=== PATIENT | male | born 1970 | race Caucasian/White ===

== ENCOUNTER 2017-07-30 01:42 | Emergency (ER) | payer OTHER ==
[~2017-07-30] VITALS: Ht 182.9 cm; Wt 72.0 kg
[~2017-07-30 01:42] MED LIST: CLON.1 PO; LEVE500 PO; OXYC15TA PO; TRAZ50TA4 PO; XANA1TAB6 PO
[2017-07-30 01:52] VITALS: BP 143/90; PULSE 104; RESP 16; TEMP 97.8; O2SAT 100
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
[2017-07-30 02:17] VITALS: BP 132/87; PULSE 98; RESP 18; O2SAT 94
--- NOTE | 2017-07-30 02:44 | RADRPT ---
EXAM DATE/TIME: 07/30/2017 02:27 [facility] COMPARISON: CT BRAIN W/O CONTRAST, September 04, 2014, 10:50. INDICATIONS : Cephalgia. RADIATION DOSE: 33.75 CTDIvol (mGy) MEDICAL HISTORY : Seizures. Cardiovascular disease SURGICAL HISTORY : None. ENCOUNTER: Initial ACUITY: 1 day PAIN SCALE: 7/10 LOCATION: cranial TECHNIQUE: Multiple contiguous axial images were obtained of the head. Using automated exposure control and adj ustment of the mA and/or kV according to patient size, radiation dose was kept as low as reasonably a chievable to obtain optimal diagnostic quality images. DICOM format image data is available electro nically for review and comparison. FINDINGS: CEREBRUM: The ventricles are normal. There is a 14 mm partially calcified pineal cyst. No evidence of midline shift, mass lesion, hemorrhage or acute infarction. No extra-axial fluid collections are seen. POSTERIOR FOSSA: The cerebellum and brainstem are intact. The 4th ventricle is midline. The cerebellopontine angle i s unremarkable. EXTRACRANIAL: Visualized sinuses are clear. SKULL: The calvaria is intact. No evidence of skull fracture. CONCLUSION: 1. No acute intracranial abnormality is identified. 2. 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 Yrn De La Cruz MD on July 30, 2017 at 2:40 Board Certified Radiologist. This report was verified electronically.
[2017-07-30] MEDS ORDERED: LEVE500 PO (04:47)
--- NOTE | 2017-07-30 08:33 | PD ---
Physical Exam Date Seen by Provider: Jul 30, 2017 Time Seen by Provider: 08:31 Narrative 0830 hrs. Patient is up ambulatory, and at full mental capacity. He is medically stable on discharge. Data Data Last Documented VS Vital Signs Date Time Temp Pulse Resp B/P (MAP) Pulse Ox O2 Delivery O2 Flow Rate FiO2 07/30/17 02:17 98 18 132/87 (102) 94 07/30/17 01:[address] Brain W/O Iv Contrast(Rout) (07/30/17 ) Diet Regular Basic (07/30/17 Breakfast) MDM Medical Record Reviewed: Yes Supervised Visit with ANN: Yes Narrative Course 0830 hrs. Patient is up ambulatory, and at full mental capacity. He is medically stable on discharge. Diagnosis Primary Impression: Alcohol use Referrals: [facility] (Out patient) Patient Instructions: Abuse of Alcohol (ED), General Instructions Med/Other Pt SpecificInfo: No Meds Exist/No RX given Disposition: 01 DISCHARGE HOME Condition: Stable Wilmar Christopher Jul 30, 2017 08:33
== END 2017-07-30 08:44 | disposition home or self-care (01) ==
LOC: NEPD 01:42
DX: F10.129 Alcohol abuse with intoxication, unspecified (principal); R51 Headache; F17.200 Nicotine dependence, unspecified, uncomplicated; F41.9 Anxiety disorder, unspecified; F32.9 Major depressive disorder, single episode, unspecified; K57.92 Diverticulitis of intestine, part unspecified, without perforation or abscess without bleeding; R56.9 Unspecified convulsions; Z72.89 Other problems related to lifestyle; Z79.899 Other long term (current) drug therapy
CPT/HCPCS: 70450; 99284

== ENCOUNTER 2018-10-26 03:30 | Inpatient (IN) ==
[2018-10-26 03:34] VITALS: TEMP 97.5
[2018-10-26 03:57] VITALS: BP 135/82; PULSE 125; RESP 26; O2SAT 97
--- NOTE | 2018-10-26 04:25 | ED ---
HPI General Chief complaint: Respiratory Symptoms Stated complaint: sob Time Seen by Provider: 10/26/18 04:09 Source: patient and family () Mode of arrival: ambulatory Limitations: no limitations History of Present Illness HPI narrative: Old male came to the emergency room with his with history of neck pain, back pain for past 3-4 days. Today his whole body has been hurting. He was tachycardic upon arrival. Patient was also hypoxic and says that he has been coughing up yellowish to grayish colored sputum. Patient is an IV drug abuser. He is also on oxycodone for chronic pain. Patient says that he went to the [facility] 2 days back with these complaints and was given an IM pain medication shot and discharged home. His heart rate was in 120s when he arrived. He has been diaphoretic and getting chills at home. His who is here with him has history of IV drug abuse as well along with infective endocarditis and cellulitis from MRSA. Pain is worse upon movement. Related Data Home Medications Medication Instructions Recorded Confirmed oxycodone 30 mg PO Q4-6H PRN 10/26/18 10/26/18 Allergies Allergy/AdvReac Type Severity Reaction Status Date / Time bee venom protein (honey bee) Allergy Severe Anaphylaxis Unverified 10/26/18 03: 49 cyclobenzaprine Allergy Severe MUSCLE Unverified 10/26/18 03:49 SPASMS Review of Systems ROS: all other systems reviewed are negative [facility] Medical History Medical History Cervical vertebral fusion (Acute) HTN (hypertension) (Acute) Heart attack (Acute) Hyperglycemia (Acute) Seizures (Acute) Surgical History Surgical History History of hernia repair (Acute) Social History Social History Smoking Status: Current every day smoker Tobacco Type: Cigarettes How Often Do You Have a Drink Containing Alcohol: Monthly or less Recent Travel in [facility] within the Last 8 Weeks: No Recent Out of Country Travel within the Last 8 Weeks: No Immunization History Tetanus Immunization: <5 Years Exam Narrative Exam Narrative: GENERAL: Awake, alert, anxious, moderate distress SKIN: Warm and diaphoretic. Multiple track rodriguez HEAD: Atraumatic. Normocephalic. EYES: Pupils equal and round. No scleral icterus. No injection or drainage. ENT: No nasal bleeding or discharge. Mucous membranes pink and moist. NECK: Trachea midline. No JVD. CARDIOVASCULAR: Regular rate and rhythm. Tachycardia. No murmur appreciated. RESPIRATORY: No accessory muscle use. Fine bibasilar crackles GASTROINTESTINAL: Abdomen soft, non-tender, nondistended. Hepatic and splenic margins not palpable. MUSCULOSKELETAL: No obvious deformities. No clubbing. No cyanosis. No edema. NEUROLOGICAL: Awake and alert. No obvious cranial nerve deficits. Motor grossly within normal limits. Normal speech. PSYCHIATRIC: Appropriate mood and affect; insight and judgment normal. Course Initial Documented Vital Signs Temperature 97.5 F L 10/26/18 03:32 Pulse Rate 127 H 10/26/18 03:32 Respiratory Rate 28 H 10/26/18 03:32 Blood Pressure 135/85 10/26/18 03:32 Pulse Oximetry 94 L 10/26/18 03:32 Last Documented Vital Signs Temperature 97.5 F L 10/26/18 03:32 Pulse Rate 125 H 10/26/18 03:55 Respiratory Rate 26 H 10/26/18 03:55 Blood Pressure 135/82 10/26/18 03:55 Pulse Oximetry 97 10/26/18 03:55 Critical Care Time Critical Care Time: Yes Total Critical Care Time: 30 Attestation: Aggregate critical care time was 30 minutes. Time to perform other separately billable procedures was not included in the critical care time. My time did not include minutes spent treating any other patients simultaneously or on activities that did not directly contribute to the patient's treatment. The services I provided to this patient were to treat and/or prevent clinically significant deterioration that could result in: Sepsis, sepsis protocol I provided critical care services requiring my management, as noted below: Chart data review, documentation time, medication orders and management, vital sign assessments/reviewing monitor data, ordering and reviewing lab tests, ordering and interpreting/reviewing x-rays and diagnostic studies, care of the patient and discussion of the patient with the admitting physicians. Medical Decision Making MDM Narrative Medical decision making narrative: 5:49 AM patient was given IV fluid bolus, IV Zosyn and vancomycin. White blood cell count is significantly elevated. I have expressed to him my concern regarding blood-borne infection from IV drug abuse. Chest x-ray and chest CT is suggestive of bronchopneumonia and mild bilateral pleural effusion. I have ordered an MRI of his cervical, thoracic and lumbar spine which is pending. Patient will require admission. Awaiting for the hospitalist to call back. Medical Screen Exam Complete: Yes Emergency Medical Condition: Yes Lab Data Result diagrams: 10/26/18 04:50 10/26/18 04:50 Lab Results 10/26/18 10/26/18 10/26/18 Range/Units 04:50 04:50 04:50 WBC 21.6 H (4.0-11.0) th/mm3 RBC 4.64 (4.50-5.90) mil/mm3 Hgb 13.3 (13.0-17.0) gm/dL Hct 38.3 L (39.0-51.0) % MCV 82.6 (80.0-100.0) fL MCH 28.6 (27.0-34.0) pg MCHC 34.7 (32.0-36.0) % RDW 16.2 (11.6-17.2) % Plt Count 161 (150-450) th/mm3 MPV 9.1 (7.0-11.0) fL Neut % (Auto) 87.1 H (16.0-70.0) % Lymph % (Auto) 3.9 L (9.0-44.0) % [place] % (Auto) 7.8 (0.0-8.0) % Eos % (Auto) 1.0 (0.0-4.0) % Baso % (Auto) 0.2 (0.0-2.0) % Neut # (Auto) 18.8 H (1.8-7.7) th/mm3 Lymph # (Auto) 0.8 L (1.0-4.8) th/mm3 [place] # (Auto) 1.7 H (0.0-0.9) th/mm3 Eos # (Auto) 0.2 (0.0-0.4) th/mm3 Baso # (Auto) 0.0 (0.0-0.2) th/mm3 WBC Differential . Differential Comment Auto diff final Sodium 136 (136-145) meq/L Potassium 3.3 L (3.5-5.1) meq/L Chloride 101 (98-107) meq/L Carbon Dioxide 24.3 (21.0-32.0) meq/L Anion Gap 11 (5-15) meq/L BUN 15 (7-18) mg/dL Creatinine 0.91 (0.60-1.30) mg/dL Estimated GFR 89 (>89) mL/min Random Glucose 93 (74-106) mg/dL Lactic Acid 1.8 (0.4-2.0) mmol/L Calcium 8.7 (8.5-10.1) mg/dL Magnesium 1.9 (1.5-2.5) mg/dL Total Bilirubin 0.5 (0.2-1.0) mg/dL AST 52 H (15-37) U/L ALT 65 (12-78) U/L Alkaline Phosphatase 165 H (45-117) U/L Total Protein 7.6 (6.4-8.2) g/dL Albumin 2.5 L (3.4-5.0) g/dL Imaging Data Radiologist's impression: Chest X-Ray 10/26/18 04:28 CONCLUSION: Mild basilar opacity with questionable trace pleural fluid. Chest CT 10/26/18 05:10 CONCLUSION: 1. Patchy airspace disease in the lungs, especially at the lung bases most characteristic of bronchopneumonia. There is also underlying mild to moderate emphysema. 2. Borderline to mildly enlarged mediastinal lymph nodes. 3. Extensive pancreatic calcifications characteristic of chronic pancreatitis. ECG Data Attestation: I personally reviewed and interpreted this ECG as follows: Interpretation: Twelve-lead EKG was reviewed by me. Normal sinus rhythm, normal axis, tachycardia, nonspecific ST-T wave changes. Heart rate of 125 bpm. Discharge Plan Discharge Disposition Patient Disposition: 30 Still Patient Physicians Team ED Provider: Tressa Carlton Primary Care Provider: Primary Care Ellie Beck Rxs /Orders / Referrals /Forms Prescriptions: No Action oxycodone 30 mg Tablet 30 mg PO Q4-6H PRN (Reason: Acute Pain) RF: 0 Discharge Interventions Interventions: Vital Signs Last Done: 10/26/18 03:55 Status ED Status: With Doctor
[2018-10-26] MEDS ORDERED: Sod Chloride 0.9% Inj 1,000 ML IV.SIG SCH (04:45)
--- NOTE | 2018-10-26 04:49 | XR ---
EXAM DATE: 10/26/2018 4:45 AM EST AGE/SEX: 48 years / Male INDICATIONS: Bilateral lung and entire body pain. CLINICAL DATA: This is the patient's initial encounter. Patient reports that signs and symptoms have been present for 1 day and indicates a pain score of 8/10. MEDICAL/SURGICAL HISTORY: Hypertension. Fusion, cervical. COMPARISON: No prior exams available for comparison. FINDINGS: There is mild basilar airspace disease. Probable trace pleural fluid. No pneumothorax. Heart size wit hin normal limits. CONCLUSION: Mild basilar opacity with questionable trace pleural fluid. Electronically signed by: Shimon Orr MD 10/26/2018 4:47 AM EST
[2018-10-26 05:07] LABS: Baso % (Auto) 0.2 % (0.0-2.0); Eos # (Auto) 0.2 th/mm3 (0.0-0.4); Hematocrit 38.3 % (39.0-51.0); Hemoglobin 13.3 gm/dL (13.0-17.0); Lymph # (Auto) 0.8 th/mm3 (1.0-4.8); Lymph % (Auto) 3.9 % (9.0-44.0); Mean Corpuscular HGB Conc 34.7 % (32.0-36.0); Mean Corpuscular Hemoglobin 28.6 pg (27.0-34.0); Mean Corpuscular Volume 82.6 fL (80.0-100.0); Mean Platelet Volume 9.1 fL (7.0-11.0); Mono # (Auto) 1.7 th/mm3 (0.0-0.9); Mono % (Auto) 7.8 % (0.0-8.0); Neut # (Auto) 18.8 th/mm3 (1.8-7.7); Neut % (Auto) 87.1 % (16.0-70.0); Platelet Count 161 th/mm3 (150-450); Red Blood Count 4.64 mil/mm3 (4.50-5.90); Red Cell Distribution Width 16.2 % (11.6-17.2); White Blood Count 21.6 th/mm3 (4.0-11.0)
[2018-10-26] MEDS ORDERED: Vancomycin Inj 1,000 MG in Sodium Chlor 0.9% Inj 250 ML IV.SIG ONE (05:12)
[2018-10-26] MEDS ORDERED: Piperacil/Tazo 4.5 GM Premix 4.5 GM/100 ML BAG IV.SIG ONE (05:12)
[2018-10-26 05:33] LABS: Albumin 2.5 g/dL (3.4-5.0); Anion Gap 11 meq/L (5-15); Aspartate Aminotransferase 52 U/L (15-37); Blood Urea Nitrogen 15 mg/dL (7-18); Calcium 8.7 mg/dL (8.5-10.1); Carbon Dioxide 24.3 meq/L (21.0-32.0); Chloride 101 meq/L (98-107); Glomerular Filtration Rate 89 mL/min (>89); Glucose,Random 93 mg/dL (74-106); Magnesium 1.9 mg/dL (1.5-2.5); Potassium 3.3 meq/L (3.5-5.1); Sodium 136 meq/L (136-145)
[2018-10-26 05:34] LABS: Alanine Aminotransferase 65 U/L (12-78)
[2018-10-26 05:36] LABS: Alkaline Phosphatase 165 U/L (45-117); Total Protein 7.6 g/dL (6.4-8.2)
--- NOTE | 2018-10-26 05:43 | CT ---
EXAM DATE: 10/26/2018 5:31 AM EST AGE/SEX: 48 years / Male INDICATIONS: Cough. CLINICAL DATA: This is the patient's initial encounter. Patient reports that signs and symptoms have been present for 2 days and indicates a pain score of 7/10. MEDICAL/SURGICAL HISTORY: Myocardial infarction. Seizures. Hypertension. . Cervical fusion RADIATION DOSE: 8.73 CTDI (mGy) COMPARISON: No prior exams available for comparison. TECHNIQUE: Multiple contiguous axial images were obtained through the chest without contrast. Image s were obtained in suspended respiration using multiple row detector helical technique. Using automa azam exposure control and adjustment of the mA and/or kV according to patient size, radiation dose was kept as low as reasonably achievable to obtain optimal diagnostic quality images. DICOM format imag e data is available electronically for review and comparison. FINDINGS: There is airspace disease at both lung bases with some air bronchograms most characteristic of bronch opneumonia. There is mild to moderate emphysema. There is also some apical airspace disease and groun dglass opacity. No significant pleural effusion. No pericardial effusion. No pneumothorax. Borderline enlarged medias tinal lymph nodes. No acute findings in the upper abdomen. Chronic pancreatitis. CONCLUSION: 1. Patchy airspace disease in the lungs, especially at the lung bases most characteristic of broncho pneumonia. There is also underlying mild to moderate emphysema. 2. Borderline to mildly enlarged mediastinal lymph nodes. 3. Extensive pancreatic calcifications characteristic of chronic pancreatitis. Electronically signed by: Shimon Orr MD 10/26/2018 5:42 AM EST
[2018-10-26] MEDS ORDERED: Vancomycin Consult Pharmacy OTHER PRN (06:03)
[2018-10-26] MEDS ORDERED: Bisacodyl 10 MG Supp RECTAL PRN (06:06)
[2018-10-26] MEDS ORDERED: Acetaminophen 325 MG Tablet PO PRN (06:06)
[2018-10-26] MEDS ORDERED: Sod Chloride 0.9% Inj 1,000 ML IV.CONT SCH (06:15)
[2018-10-26 06:21] LABS: Bilirubin,Urine Negative (Negative); Clarity,Urine Hazy (Clear); Color,Urine Yellow (Yellw/Straw); Glucose,Urine (UA) Negative (Negative); Hyaline Casts,Urine 4 /lpf (0-3); Leukocyte Esterase,Urine Negative (Negative); Mucus,Urine Few /lpf (Occasional); Nitrite,Urine Negative (Negative); Specific Gravity,Urine 1.016 (1.002-1.035)
[2018-10-26] MEDS ORDERED: Senna/Docusate Sodium 8.6/50 MG Tablet PO SCH (09:00)
[2018-10-26 11:14] LABS: Amphetamine Screen,Urine Pos (Neg); Barbiturate Screen,Urine Neg (Neg); Cannabinoid Screen,Urine Pos (Neg); Cocaine Screen,Urine Pos (Neg); Opiate Screen,Urine Pos (Neg)
--- NOTE | 2018-10-27 06:42 | ECG ---
Date Performed: 10/26/2018 Time Performed: 03:49:48 PTAGE: 48 years EKG: SINUS TACHYCARDIA WITH SHORT GA INTERVAL LEFT VENTRICULAR HYPERTROPHY AND ST-T CHANGE ABNOR MAL ECG NO PREVIOUS TRACING DOCTOR: Rene Valero Interpretating Date/Time 10/27/2018 06:40:38
== END 2018-10-26 07:00 | disposition left against medical advice (07) ==
LOC: NEPC 03:30 → NEDA 06:11
PROVIDERS: ADMIT Hospitalist; ATTEND Hospitalist
CPT/HCPCS: 71010; 71045; 71250; 80053; 80307; 81001; 83605; 83735; 85025; 86403; 87040; 87186; 87205; 93005; J2060; J2543; J7030

== ENCOUNTER 2018-10-28 14:13 | Inpatient (IN) ==
[2018-10-28] MEDS ORDERED: Vancomycin Inj 1,000 MG in Sodium Chlor 0.9% Inj 250 ML IV.SIG ONE (16:09)
[2018-10-28] MEDS ORDERED: Piperacil/Tazo 3.375 GM Premix 50 ML IV.SIG ONE (16:09)
[2018-10-28] MEDS ORDERED: Sod Chloride 0.9% Inj 1,000 ML IV.SIG SCH (16:15)
--- NOTE | 2018-10-28 16:28 | XR ---
EXAM DATE: 10/28/2018 4:23 PM EST AGE/SEX: 48 years / Male INDICATIONS: Fever. Patient states he has an infection from missed veins during IVDU. CLINICAL DATA: This is the patient's initial encounter. Patient reports that signs and symptoms have been present for 1 day and indicates a pain score of 5/10. MEDICAL/SURGICAL HISTORY: . Myocardial infarction. Seizures. Hypertension. Smoker. IVDU. . Ce rvical fusion. COMPARISON: C, CHEST 1V SINGLE AP, 10/26/2018. . FINDINGS: Slight interval worsening in aeration with increase in confluence of bibasilar infiltrates. Likely sm all effusions. Cardiac contours are grossly unchanged CONCLUSION: Slight worsening in aeration. Electronically signed by: Yrn Colby MD 10/28/2018 4:26 PM EST
--- NOTE | 2018-10-28 16:45 | ED ---
HPI General Chief Complaint: Fever Stated Complaint: Poss Infection Time Seen by Provider: 10/28/18 15:59 Source: patient and family Mode of arrival: ambulatory Limitations: no limitations History of Present Illness HPI Narrative: 48-year-old male complains of fever, body aches, productive cough and shortness of breath. Patient states that the symptoms started about a week ago. Patient states that with copy persistent and productive cough. Patient complained of body ache. Patient has history IV drug abuse. Patient also has history of chronic pain and on oxycodone. Patient states that the last time he had IV drug was 4 days ago. Patient was seen at [facility] about a week ago and given an injection of medication and discharged home. Patient was seen in emergency room at [facility] 2 days ago and was diagnosed with pneumonia. Patient was given IV vancomycin and IV Zosyn. Patient was advised to be admitted. Patient left AMA. Chest x-ray at that time show bibasilar infiltrate. CT of the chest shows bibasilar airspace disease. Patient states that the symptoms are worse since he left the hospital. Patient complained of fever chills and sweating. Patient has history hypertension, CAD status post MA, hyperlipidemia and seizure. Patient status post neck surgery in the past. Patient has history of infective endocarditis and cellulitis and MRSA in the past. Patient also complained of bilateral hand swelling for the past 3 days. Patient states that he has moderate aching pain to both hands. Patient denies direct trauma to the area. Blood culture done 2 days ago positive for Staph aureus and Strep viridans. complaint: Reports fever Onset (ago): day(s) Temperature Source: oral Context: Reports recent antibiotic use Associated symptoms: Reports chills, myalgias, cough and shortness of breath Relieving factors: nothing Exacerbating factors: nothing Treatments prior to arrival fever: Reports none Related Data Home Medications Medication Instructions Recorded Confirmed oxycodone 30 mg PO Q4-6H PRN 10/26/18 10/28/18 ibuprofen 600 mg PO TID PRN 10/28/18 10/28/18 Allergies Allergy/AdvReac Type Severity Reaction Status Date / Time bee venom protein (honey bee) Allergy Severe Anaphylaxis Unverified 10/26/18 03: 49 cyclobenzaprine Allergy Severe MUSCLE Unverified 10/26/18 03:49 SPASMS Review of Systems ROS: all other systems reviewed are negative [facility] Medical History Medical History Cervical vertebral fusion (Acute) HTN (hypertension) (Acute) Heart attack (Acute) Hyperglycemia (Acute) Seizures (Acute) Surgical History Surgical History History of hernia repair (Acute) Social History Social History Substance History: Active Abuse Smoking Status: Current every day smoker Tobacco Type: Cigarettes How Often Do You Have a Drink Containing Alcohol: Never Recent Travel in [place] within the Last 8 Weeks: No Recent Out of Country Travel within the Last 8 Weeks: No Substance Abuse Detail Marijuana: Substance Use Status: Active Heroin: Substance Use Status: Active Immunization History Tetanus Immunization: <5 Years Tetanus Immunization Year if Known: 2016 Exam Narrative Exam Narrative: GENERAL: Well-nourished, well-developed patient. SKIN: Focused skin assessment warm/dry. HEAD: Normocephalic. EYES: No scleral icterus. No injection or drainage. NECK: Supple, trachea midline. No JVD or lymphadenopathy. CARDIOVASCULAR: Regular rate and rhythm without murmurs, gallops, or rubs. RESPIRATORY: Breath sounds equal bilaterally. No accessory muscle use. Patient has mild expiratory wheezes bilaterally. Few rhonchi at the bases. GASTROINTESTINAL: Abdomen soft, non-tender, nondistended. MUSCULOSKELETAL: Patient has +1-+2 pitting edema dorsal aspect of both hands with mild tenderness on palpation. No induration noted. No redness no heat. Full range of motion of the fingers. BACK: Nontender without obvious deformity. No CVA tenderness. Neurologic exam normal. Course Initial Documented Vital Signs Temperature 97.8 F 10/28/18 14:26 Pulse Rate 108 H 10/28/18 14:26 Respiratory Rate 20 10/28/18 14:26 Blood Pressure 139/81 10/28/18 14:26 Pulse Oximetry 94 L 10/28/18 14:26 Last Documented Vital Signs Temperature 99.8 F H 10/28/18 18:16 Pulse Rate 109 H 10/28/18 18:16 Respiratory Rate 20 10/28/18 18:16 Blood Pressure 156/87 H 10/28/18 18:33 Pulse Oximetry 94 L 10/28/18 18:16 Medical Decision Making MDM Narrative Medical decision making narrative: 48-year-old male with cough congestion fever chills body ache. History IV drug abuse. History of pneumonia, left AMA 2 days ago. Normal saline solution 1 L IV bolus. Vancomycin 1 g IV. Zosyn 3.375 g IV. Potassium chloride 40 mEq p.o. given. Medical Screen Exam Complete: Yes Emergency Medical Condition: Yes Lab Data Lab results reviewed: Yes I reviewed the patient's lab results. Result diagrams: 10/28/18 16:35 10/28/18 16:35 Lab Results 10/28/18 10/28/18 10/28/18 Range/Units 16:35 16:35 16:35 WBC 22.3 H (4.0-11.0) th/mm3 RBC 4.08 L (4.50-5.90) mil/mm3 Hgb 11.4 L (13.0-17.0) gm/dL Hct 33.4 L (39.0-51.0) % MCV 81.8 (80.0-100.0) fL MCH 28.0 (27.0-34.0) pg MCHC 34.2 (32.0-36.0) % RDW 16.3 (11.6-17.2) % Plt Count 137 L (150-450) th/mm3 MPV 8.4 (7.0-11.0) fL Neut % (Auto) 85.3 H (16.0-70.0) % Lymph % (Auto) 9.1 (9.0-44.0) % Falls % (Auto) 5.3 (0.0-8.0) % Eos % (Auto) 0.0 (0.0-4.0) % Baso % (Auto) 0.3 (0.0-2.0) % Neut # (Auto) 19.1 H (1.8-7.7) th/mm3 Lymph # (Auto) 2.0 (1.0-4.8) th/mm3 Falls # (Auto) 1.2 H (0.0-0.9) th/mm3 Eos # (Auto) 0.0 (0.0-0.4) th/mm3 Baso # (Auto) 0.1 (0.0-0.2) th/mm3 WBC Differential . Differential Comment Auto diff final PT 11.9 H (9.8-11.6) sec INR 1.2 Ratio APTT 34.7 H (23.4-31.7) sec Sodium 134 L (136-145) meq/L Potassium 3.1 L (3.5-5.1) meq/L Chloride 98 (98-107) meq/L Carbon Dioxide 28.5 (21.0-32.0) meq/L Anion Gap 8 (5-15) meq/L BUN 12 (7-18) mg/dL Creatinine 0.73 (0.60-1.30) mg/dL Estimated GFR Greater than 89 (>89) mL/min Random Glucose 118 H (74-106) mg/dL Lactic Acid (0.4-2.0) mmol/L Calcium 8.1 L (8.5-10.1) mg/dL Total Bilirubin 0.8 (0.2-1.0) mg/dL AST 24 (15-37) U/L ALT 35 (12-78) U/L Alkaline Phosphatase 126 H (45-117) U/L Total Creatine Kinase 23 L (39-308) U/L Troponin I Less than 0.02 L (0.02-0.05) ng/mL Total Protein 7.0 D (6.4-8.2) g/dL Albumin 1.8 L (3.4-5.0) g/dL Urine Color (Yellw/Straw) Urine Clarity (Clear) Urine pH (5.0-8.5) Ur Specific Flom (1.002-1.035) Urine Protein (Neg-Trace) mg/dL Urine Glucose (UA) (Negative) mg/dL Urine Ketones (Negative) mg/dL Urine Occult Blood (Negative) Urine Nitrate (Negative) Urine Bilirubin (Negative) Urine Urobilinogen (Less than 2) mg/dL Ur Leukocyte Esterase (Negative) Urine RBC (0-3) /hpf Urine WBC (0-5) /hpf Ur Squamous Epith Cells (0-5) /hpf Urine Mucus (Occasional) /lpf Micro UA Comment Ur Microscopic Review Urine Culture Comments 10/28/18 10/28/18 Range/Units 16:35 17:25 WBC (4.0-11.0) th/mm3 RBC (4.50-5.90) mil/mm3 Hgb (13.0-17.0) gm/dL Hct (39.0-51.0) % MCV (80.0-100.0) fL MCH (27.0-34.0) pg MCHC (32.0-36.0) % RDW (11.6-17.2) % Plt Count (150-450) th/mm3 MPV (7.0-11.0) fL Neut % (Auto) (16.0-70.0) % Lymph % (Auto) (9.0-44.0) % Falls % (Auto) (0.0-8.0) % Eos % (Auto) (0.0-4.0) % Baso % (Auto) (0.0-2.0) % Neut # (Auto) (1.8-7.7) th/mm3 Lymph # (Auto) (1.0-4.8) th/mm3 Falls # (Auto) (0.0-0.9) th/mm3 Eos # (Auto) (0.0-0.4) th/mm3 Baso # (Auto) (0.0-0.2) th/mm3 WBC Differential Differential Comment PT (9.8-11.6) sec INR Ratio APTT (23.4-31.7) sec Sodium (136-145) meq/L Potassium (3.5-5.1) meq/L Chloride (98-107) meq/L Carbon Dioxide (21.0-32.0) meq/L Anion Gap (5-15) meq/L BUN (7-18) mg/dL Creatinine (0.60-1.30) mg/dL Estimated GFR (>89) mL/min Random Glucose (74-106) mg/dL Lactic Acid 2.4 H (0.4-2.0) mmol/L Calcium (8.5-10.1) mg/dL Total Bilirubin (0.2-1.0) mg/dL AST (15-37) U/L ALT (12-78) U/L Alkaline Phosphatase (45-117) U/L Total Creatine Kinase (39-308) U/L Troponin I (0.02-0.05) ng/mL Total Protein (6.4-8.2) g/dL Albumin (3.4-5.0) g/dL Urine Color Yellow (Yellw/Straw) Urine Clarity Clear (Clear) Urine pH 6.0 (5.0-8.5) Ur Specific Flom 1.017 (1.002-1.035) Urine Protein 30 H (Neg-Trace) mg/dL Urine Glucose (UA) Negative (Negative) mg/dL Urine Ketones Negative (Negative) mg/dL Urine Occult Blood Negative (Negative) Urine Nitrate Negative (Negative) Urine Bilirubin Negative (Negative) Urine Urobilinogen Less than 2 (Less than 2) mg/dL Ur Leukocyte Esterase Negative (Negative) Urine RBC 1 (0-3) /hpf Urine WBC 5 (0-5) /hpf Ur Squamous Epith Cells <1 (0-5) /hpf Urine Mucus Few H (Occasional) /lpf Micro UA Comment Culture not ind Ur Microscopic Review Not Reportable Urine Culture Comments Culture not ind Imaging Data Radiologist's impression: Chest X-Ray 10/28/18 16:09 CONCLUSION: Slight worsening in aeration. Discharge Plan Discharge Disposition Patient Disposition: 30 Still Patient Discharge Details Diagnosis: Community acquired pneumonia, Sepsis, Acute hypokalemia, Cellulitis of hand Physicians Team ED Provider: Emiliano Bragg Primary Care Provider: Primary Care Ellie Beck Attending Provider: Nichole Menjivar Discharge Interventions Interventions: Vital Signs Last Done: 10/28/18 18:33 Status ED Status: Admitted Patient
[2018-10-28 17:00] LABS: Baso # (Auto) 0.1 th/mm3 (0.0-0.2); Baso % (Auto) 0.3 % (0.0-2.0); Hematocrit 33.4 % (39.0-51.0); Hemoglobin 11.4 gm/dL (13.0-17.0); Lymph % (Auto) 9.1 % (9.0-44.0); Mean Corpuscular HGB Conc 34.2 % (32.0-36.0); Mean Corpuscular Volume 81.8 fL (80.0-100.0); Mean Platelet Volume 8.4 fL (7.0-11.0); Mono # (Auto) 1.2 th/mm3 (0.0-0.9); Mono % (Auto) 5.3 % (0.0-8.0); Neut # (Auto) 19.1 th/mm3 (1.8-7.7); Neut % (Auto) 85.3 % (16.0-70.0); Platelet Count 137 th/mm3 (150-450); Red Blood Count 4.08 mil/mm3 (4.50-5.90); Red Cell Distribution Width 16.3 % (11.6-17.2); White Blood Count 22.3 th/mm3 (4.0-11.0)
[2018-10-28 17:08] LABS: Activated Partial Thrombo Time 34.7 sec (23.4-31.7); INR 1.2 Ratio; Prothrombin Time 11.9 sec (9.8-11.6)
[2018-10-28 17:19] LABS: Alanine Aminotransferase 35 U/L (12-78); Albumin 1.8 g/dL (3.4-5.0); Alkaline Phosphatase 126 U/L (45-117); Anion Gap 8 meq/L (5-15); Aspartate Aminotransferase 24 U/L (15-37); Blood Urea Nitrogen 12 mg/dL (7-18); Calcium 8.1 mg/dL (8.5-10.1); Carbon Dioxide 28.5 meq/L (21.0-32.0); Chloride 98 meq/L (98-107); Glomerular Filtration Rate Greater Than 89 mL/min (>89); Glucose,Random 118 mg/dL (74-106); Potassium 3.1 meq/L (3.5-5.1); Sodium 134 meq/L (136-145)
[2018-10-28 17:23] LABS: Creatine Kinase 23 U/L (39-308)
[2018-10-28 18:12] LABS: Bilirubin,Urine Negative (Negative); Color,Urine Yellow (Yellw/Straw); Glucose,Urine (UA) Negative (Negative); Leukocyte Esterase,Urine Negative (Negative); Mucus,Urine Few /lpf (Occasional); Nitrite,Urine Negative (Negative); Specific Gravity,Urine 1.017 (1.002-1.035); Squamous Epithelial Cell,Urine <1 /hpf (0-5)
[2018-10-28 18:16] LABS: Clarity,Urine Clear (Clear)
[2018-10-28] MEDS ORDERED: Acetaminophen 325 MG Tablet PO ONE (18:17)
[2018-10-28] MEDS ORDERED: Vancomycin Consult Pharmacy OTHER PRN (21:24)
[2018-10-28] MEDS ORDERED: Sod Chloride 0.9% Inj 1,000 ML IV.CONT SCH (21:30)
[2018-10-28] MEDS ORDERED: Bisacodyl 10 MG Supp RECTAL PRN (21:30)
--- NOTE | 2018-10-28 21:47 | P.HP ---
History of Present Illness Service: [facility] Primary Care Physician: No Primary Care Physician History of Present Illness: 48-year-old male with a past medical history significant for hypertension and IV drug abuse presents to the emergency department for the evaluation of increasing shortness of breath, productive cough, fever/chills and generalized weakness. The patient reports he lasted IV drugs approximately 1 week ago. He was hospitalized on Friday where he was diagnosed with pneumonia and left AMA. He also has a left thumb cellulitis that is worsening. No chest pain. No abdominal pain. No nausea/vomiting/diarrhea. No focal neurologic deficits. Inpatient Certification: I certify that the inpatient services were ordered in accordance with Medicare regulations governing the order. This includes certification that hospital inpatient services are reasonable and necessary and in the case of services not specified as inpatient-only under 42 CFR 419.22(n), that they are appropriately provided as inpatient services in accordance to with the 2-midnight benchmark under 43 CFR 412.3(e) Review of Systems All other systems reviewed negative except as stated in HPI [facility] - History History Provided By: Patient - Medical History Medical History: Medical History (Last Reviewed 10/28/18 @ 16:40 by Emiliano Bragg MD) Cervical vertebral fusion HTN (hypertension) Heart attack Hyperglycemia Seizures - Surgical History Surgical History: Surgical History (Last Reviewed 10/28/18 @ 21:37 by Nichole Menjivar MD) History of hernia repair - Family History Family History: Family History (Last Updated 10/28/18 @ 21:37 by Nichole Menjivar MD) Other Hypertension Pancreatic cancer - Social History I have reviewed the patient's Social History: Yes - Tobacco History Second Hand Smoke Exposure: Yes Tobacco Use In Past 30 Days: Yes Smoking Status: Current every day smoker Tobacco Type: Cigarettes - Alcohol History How Often Do You Have a Drink Containing Alcohol: Never - Substance Use History Substance History: Active Abuse - Substance Use Type Marijuana Status: Early Remission Route Used: Inhalation Frequency: socially, whenever around Last Used: 1 week ago Comment: pain management Heroin Status: Early Remission Route Used: Intravenously Frequency: monthly Last Used: 4days ago Comment: pain management - Travel History Recent Travel in the [place] Within the Last 8 Weeks: No Recent Travel Out of the Country Within the Last 8 Weeks: No - Immunization History Tetanus Immunization: <5 Years Tetanus Immunization Year if Known: 2015 Hx Influenza Vaccine This Season: Yes Medications and Allergies Active Medications: Active Medications Sodium Chloride (Ns Flush) 2 ml IV.FLUSH BID NBA Sodium Chloride (Ns Flush) 2 ml IV.FLUSH PRN PRN PRN Reason: FLUSH AFTER USING IV ACCESS Allergies Allergy/AdvReac Type Severity Reaction Status Date / Time bee venom protein (honey bee) Allergy Severe Anaphylaxis Unverified 10/26/18 03: 49 cyclobenzaprine Allergy Severe MUSCLE Unverified 10/26/18 03:49 SPASMS Home Medications Medication Instructions Recorded Confirmed Type oxycodone 30 mg PO Q4-6H PRN 10/26/18 10/28/18 History ibuprofen 600 mg PO TID PRN 10/28/18 10/28/18 History Exam Vital signs: Vital Signs 10/28/18 14:26 10/28/18 16:02 10/28/18 16:09 Temperature 97.8 F 98.5 F Pulse Rate 108 H 109 H 107 H Respiratory Rate 20 20 Blood Pressure 139/81 148/87 H Pulse Oximetry 94 L 96 95 10/28/18 18:16 10/28/18 18:33 10/28/18 20:00 Temperature 99.8 F H Pulse Rate 109 H 120 H Respiratory Rate 20 22 Blood Pressure 156/87 H 143/75 H Pulse Oximetry 94 L 94 L 10/28/18 20:50 Temperature 99.7 F H Pulse Rate 110 H Respiratory Rate 18 Blood Pressure 158/87 H Pulse Oximetry 93 L Intake & Output 10/28/18 10/28/18 10/29/18 06:59 18:59 06:59 Intake Total 1300 / 1300 Balance 1300 / 1300 Weight 68.039 kg 66.3 kg Intake: IV 1300 / 1300 Zosyn 3.375 GM Premix 50 ML @ 50 / 50 100 mls/hr IV.SIG ONCE ONE Rx#: [id number] NS Inj 1,000 ML @ 1000 mls/hr 1000 / 1000 IV.SIG BOLUS NBA Rx#:[id number] Vancomycin Inj 1,000 MG In NS 250 / 250 Inj 250 ML @ 250 mls/hr IV.SIG ONCE ONE Rx#:[id number] Other: Weight On Admission 68.353 kg Narrative: Gen.: No acute distress Head: Normocephalic. Atraumatic. EENT: Pupils equal round and reactive to light. Nose without drainage. Airway intact. Throat without injection. Cardiovascular: Regular rate and rhythm. No murmurs, rubs or gallops. Respiratory: Bilateral rhonchi. Abdomen: Soft, nontender, nondistended. No peritoneal signs. Musculoskeletal: No gross deformities. No edema. Skin: Erythematous and edematous left thumb that is warm to the touch. No fluctuance. Neuro: Sensory and motor grossly intact. Cranial nerves II through XII grossly intact. Results - Labs CBC & Chem 7: 10/28/18 16:35 10/28/18 16:35 Labs: Laboratory Results - last 24 hr 10/28/18 10/28/18 10/28/18 16:35 16:35 16:35 WBC 22.3 H RBC 4.08 L Hgb 11.4 L Hct 33.4 L MCV 81.8 MCH 28.0 MCHC 34.2 RDW 16.3 Plt Count 137 L MPV 8.4 Neut % (Auto) 85.3 H Lymph % (Auto) 9.1 Posey % (Auto) 5.3 Eos % (Auto) 0.0 Baso % (Auto) 0.3 Neut # (Auto) 19.1 H Lymph # (Auto) 2.0 Posey # (Auto) 1.2 H Eos # (Auto) 0.0 Baso # (Auto) 0.1 WBC Differential . Differential Comment Auto diff final PT 11.9 H INR 1.2 APTT 34.7 H Sodium 134 L Potassium 3.1 L Chloride 98 Carbon Dioxide 28.5 Anion Gap 8 BUN 12 Creatinine 0.73 Estimated GFR Greater than 89 Random Glucose 118 H Lactic Acid Calcium 8.1 L Total Bilirubin 0.8 AST 24 ALT 35 Alkaline Phosphatase 126 H Total Creatine Kinase 23 L Troponin I Less than 0.02 L Total Protein 7.0 D Albumin 1.8 L Urine Color Urine Clarity Urine pH Ur Specific Mitchell Urine Protein Urine Glucose (UA) Urine Ketones Urine Occult Blood Urine Nitrate Urine Bilirubin Urine Urobilinogen Ur Leukocyte Esterase Urine RBC Urine WBC Ur Squamous Epith Cells Urine Mucus Micro UA Comment Ur Microscopic Review Urine Culture Comments 10/28/18 10/28/18 16:35 17:25 WBC RBC Hgb Hct MCV MCH MCHC RDW Plt Count MPV Neut % (Auto) Lymph % (Auto) Posey % (Auto) Eos % (Auto) Baso % (Auto) Neut # (Auto) Lymph # (Auto) Posey # (Auto) Eos # (Auto) Baso # (Auto) WBC Differential Differential Comment PT INR APTT Sodium Potassium Chloride Carbon Dioxide Anion Gap BUN Creatinine Estimated GFR Random Glucose Lactic Acid 2.4 H Calcium Total Bilirubin AST ALT Alkaline Phosphatase Total Creatine Kinase Troponin I Total Protein Albumin Urine Color Yellow Urine Clarity Clear Urine pH 6.0 Ur Specific Mitchell 1.017 Urine Protein 30 H Urine Glucose (UA) Negative Urine Ketones Negative Urine Occult Blood Negative Urine Nitrate Negative Urine Bilirubin Negative Urine Urobilinogen Less than 2 Ur Leukocyte Esterase Negative Urine RBC 1 Urine WBC 5 Ur Squamous Epith Cells <1 Urine Mucus Few H Micro UA Comment Culture not ind Ur Microscopic Review Not Reportable Urine Culture Comments Culture not ind - Imaging Impressions Chest X-Ray 10/28/18 16:09 CONCLUSION: Slight worsening in aeration. Caprini VTE Risk Assessment Caprini VTE Risk Assessment: No/Low Risk (score <= 1) Caprini Risk Assessment Model: Point Value = 1 Point Value = 2 Point Value = 3 Point Value = 5 Age 41-60 Minor surgery BMI > 25 kg/m2 Swollen legs Varicose veins or History of unexplained or recurrent spontaneous Oral contraceptives or hormone replacement Sepsis (< 1 month) Serious lung disease, including pneumonia (< 1 month) Abnormal pulmonary function Acute myocardial infarction Congestive heart failure (< 1 month) History of inflammatory bowel disease Medical patient at bed rest Age 61-74 Arthroscopic surgery Major open surgery (> 45 min) Laparoscopic surgery (> 45 min) Malignancy Confined to bed (> 72 hours) Immobilizing plaster cast Central venous access Age >= 75 History of VTE Family history of VTE Factor V Leiden Prothrombin [id number] Lupus anticoagulant Anticardiolipin antibodies Elevated serum homocysteine Heparin-induced thrombocytopenia Other congenital or acquired thrombophilia Stroke (< 1 month) Elective arthroplasty Hip, pelvis, or leg fracture Acute spinal cord injury (< 1 month) Prophylaxis Regimen: Total Risk Factor Score Risk Level Prophylaxis Regimen 0-1 Low Early ambulation 2 Moderate Order ONE of the following: *Sequential Compression Device (SCD) *Heparin 5000 units SQ BID 3-4 Higher Order ONE of the following medications: *Heparin 5000 units SQ TID *Enoxaparin/Lovenox 40 mg SQ daily (WT < 150 kg, CrCl > 30 mL/min) *Enoxaparin/Lovenox 30 mg SQ daily (WT < 150 kg, CrCl > 10-29 mL/min) *Enoxaparin/Lovenox 30 mg SQ BID (WT < 150 kg, CrCl > 30 mL/min) AND/OR *Sequential Compression Device (SCD) 5 or more Highest Order ONE of the following medications: *Heparin 5000 units SQ TID (Preferred with Epidurals) *Enoxaparin/Lovenox 40 mg SQ daily (WT < 150 kg, CrCl > 30 mL/min) *Enoxaparin/Lovenox 30 mg SQ daily (WT < 150 kg, CrCl > 10-29 mL/min) *Enoxaparin/Lovenox 30 mg SQ BID (WT < 150 kg, CrCl > 30 mL/min) AND *Sequential Compression Device (SCD) Assessment and Plan - Plan Assessment/plan: 1. Pneumonia/sepsis Patient with elevated lactic acid, leukocytosis and tachycardia Chest x-ray shows slight interval worsening in aeration with increasing confluence of bibasilar infiltrates Vancomycin/Zosyn Blood cultures pending Repeat lactic acid pending 2. IV drug abuse/left hand cellulitis Patient reports last injection was approximately 1 week ago Antibiotics as above Cultures as above Hand x-ray pending Echo pending to rule out endocarditis 3. Opiate abuse/chronic pain [facility] record review showed that patient receives 30 mg oxycodone 3 times daily Patient will receive oxycodone 10 mg p.o. every 6 hours as needed 4. Hypertension Patient not on any home antihypertensives Clonidine as needed 5. Hypokalemia Status post p.o. repletion Monitor BMP FEN Regular diet Electrolytes: As above NS 100 cc/hour
--- NOTE | 2018-10-28 22:11 | XR ---
EXAM DATE: 10/28/2018 10:08 PM EST AGE/SEX: 48 years / Male INDICATIONS: Left hand swelling for 4 days. CLINICAL DATA: This is the patient's initial encounter. Patient reports that signs and symptoms have been present for 4 - 6 days and indicates a pain score of 5/10. MEDICAL/SURGICAL HISTORY: None. None. COMPARISON: No prior exams available for comparison. FINDINGS: Bony structures are intact and in normal alignment. Osseous density is normal. There is soft tissue s welling over the dorsum of the hand. No radiopaque foreign bodies seen. CONCLUSION: Soft tissue swelling over the dorsum of the hand with no underlying bony abnormality. Electronically signed by: Darion oBrja MD 10/28/2018 10:09 PM EST
[2018-10-28] MEDS: Piperacil/Tazo 4.5 GM Premix 4.5 GM/100 ML BAG IV.SIG SCH (22:29)
[2018-10-28] MEDS: Acetaminophen 325 MG Tablet PO PRN (23:34)
[2018-10-29] MEDS: Vancomycin Inj 1,500 MG in Sodium Chlor 0.9% Inj 500 ML IV.SIG SCH ×2 (02:49→17:12)
[2018-10-29] MEDS: Piperacil/Tazo 4.5 GM Premix 4.5 GM/100 ML BAG IV.SIG SCH ×3 (05:19→17:11)
[2018-10-29] MEDS ORDERED: Ketorolac Inj 30 MG/ML (IVP) Vial IV.PUSH ONE ×2 (06:29→23:25)
[2018-10-29 07:53] LABS: Baso # (Auto) 0.1 th/mm3 (0.0-0.2); Baso % (Auto) 0.6 % (0.0-2.0); Eos # (Auto) 0.2 th/mm3 (0.0-0.4); Eos % (Auto) 0.8 % (0.0-4.0); Hematocrit 31.6 % (39.0-51.0); Hemoglobin 10.9 gm/dL (13.0-17.0); Lymph # (Auto) 1.2 th/mm3 (1.0-4.8); Lymph % (Auto) 5.6 % (9.0-44.0); Mean Corpuscular HGB Conc 34.4 % (32.0-36.0); Mean Corpuscular Hemoglobin 27.8 pg (27.0-34.0); Mean Corpuscular Volume 80.8 fL (80.0-100.0); Mean Platelet Volume 8.9 fL (7.0-11.0); Mono # (Auto) 0.3 th/mm3 (0.0-0.9); Mono % (Auto) 1.6 % (0.0-8.0); Neut % (Auto) 91.4 % (16.0-70.0); Platelet Count 170 th/mm3 (150-450); Red Blood Count 3.92 mil/mm3 (4.50-5.90); Red Cell Distribution Width 15.4 % (11.6-17.2); White Blood Count 20.8 th/mm3 (4.0-11.0)
[2018-10-29 08:05] LABS: Chloride 101 meq/L (98-107); Potassium 3.1 meq/L (3.5-5.1); Sodium 137 meq/L (136-145)
[2018-10-29 08:22] LABS: Anion Gap 9 meq/L (5-15); Blood Urea Nitrogen 10 mg/dL (7-18); Calcium 7.4 mg/dL (8.5-10.1); Carbon Dioxide 27.4 meq/L (21.0-32.0); Glomerular Filtration Rate Greater Than 89 mL/min (>89); Glucose,Random 110 mg/dL (74-106)
[2018-10-29 08:31] LABS: Albumin 1.6 g/dL (3.4-5.0); Calcium-Albumin Corrected 9.3 mg/dL (8.5-10.1)
[2018-10-29 08:33] LABS: Toxic Granulation 1+
--- NOTE | 2018-10-29 09:31 | P.PNIM ---
Subjective Interval history: Follow-up pneumonia and bacteremia. Patient seen and examined, fiance at bedside. Patient states he has pain all over, suffers from chronic back pain, requesting for his oxycodone to be increased. Eforse reviewed and shows that patient takes oxycodone 30 mg database 3 times per day. Will adjust. Patient states that the last time he used IV drug use was 5 days ago, use Dilaudid. He has been using for 2 years. Denies any echocardiogram in the past. Awaiting echocardiogram today. He does complain of worsening shortness of breath, and cough with subjective fever and chills as well as weakness at home. Presented to the hospital on Friday and left AMA stated he did not want to be worked up. Over the past 2 days his symptoms have worsened which prompted his return presentation to the ED. He expresses that he wants to stop using IV drugs. He states that he wants to stop using tobacco denies any history of colitis in the past. Patient's blood cultures are positive x4 gram-positive cocci. Will repeat blood cultures. Monitor for fevers. Continue IV fluids and IV antibiotics. Physical Exam Vital signs: Vital Signs 10/28/18 14:26 10/28/18 16:02 10/28/18 16:09 Temperature 97.8 F 98.5 F Pulse Rate 108 H 109 H 107 H Respiratory Rate 20 20 Blood Pressure 139/81 148/87 H Pulse Oximetry 94 L 96 95 10/28/18 18:16 10/28/18 18:33 10/28/18 20:00 Temperature 99.8 F H Pulse Rate 109 H 120 H Respiratory Rate 20 22 Blood Pressure 156/87 H 143/75 H Pulse Oximetry 94 L 94 L 10/28/18 20:50 10/28/18 22:55 10/29/18 00:00 Temperature 99.7 F H 100.6 F H Pulse Rate 110 H 105 H Respiratory Rate 18 18 18 Blood Pressure 158/87 H 124/77 Pulse Oximetry 93 L 86 L 10/29/18 00:30 10/29/18 04:00 10/29/18 04:52 Temperature 98.6 F Pulse Rate 107 H 96 H Respiratory Rate 18 18 Blood Pressure 143/88 H Pulse Oximetry 96 10/29/18 07:00 10/29/18 07:20 10/29/18 08:09 Temperature 98.9 F 98.9 F Pulse Rate 90 90 Respiratory Rate 18 17 Blood Pressure 124/89 124/89 Pulse Oximetry 98 98 Intake & Output 10/28/18 10/29/18 10/29/18 18:59 06:59 18:59 Intake Total 1300 / 1300 1880 / 1880 515 / 515 Output Total 1550 / 1550 250 / 250 Balance 1300 / 1300 330 / 330 265 / 265 Weight 68.039 kg 66.3 kg Intake: IV 1300 / 1300 200 / 200 515 / 515 Zosyn 3.375 GM Premix 50 ML @ 50 / 50 100 mls/hr IV.SIG ONCE ONE Rx#: [id number] Zosyn 4.5 GM Premix 4.5 gm In 200 / 200 100 ml @ 200 mls/hr IV.SIG Q6H [facility] Rx#:[id number] NS Inj 1,000 ML @ 1000 mls/hr 1000 / 1000 IV.SIG BOLUS [facility] Rx#:[id number] Vancomycin Inj 1,000 MG In NS 250 / 250 Inj 250 ML @ 250 mls/hr IV.SIG ONCE ONE Rx#:[id number] Vancomycin Inj 1,500 MG In NS 515 / 515 Inj 500 ML @ 250 mls/hr IV.SIG Q12H [facility] Rx#:[id number] Oral 1680 / 1680 Output: Urine 1550 / 1550 250 / 250 Other: # Voids 2 Weight On Admission 68.353 kg Narrative: Gen.: No acute distress Head: Normocephalic. Atraumatic. EENT: Pupils equal round and reactive to light. Nose without drainage. Airway intact. Throat without injection. Cardiovascular: Regular rate and rhythm. No murmurs, rubs or gallops. Respiratory: Bilateral rhonchi. Abdomen: Soft, nontender, nondistended. No peritoneal signs. Musculoskeletal: No gross deformities. No edema. Skin: Erythematous and edematous left thumb that is warm to the touch. No fluctuance. Neuro: Sensory and motor grossly intact. Cranial nerves II through XII grossly intact. Results - Labs CBC & Chem 7: 10/29/18 07:10 10/29/18 07:10 Laboratory Results - last 24 hr 10/28/18 10/28/18 10/28/18 16:35 16:35 16:35 CBC w Diff WBC 22.3 H RBC 4.08 L Hgb 11.4 L Hct 33.4 L MCV 81.8 MCH 28.0 MCHC 34.2 RDW 16.3 Plt Count 137 L MPV 8.4 Neut % (Auto) 85.3 H Lymph % (Auto) 9.1 [place] % (Auto) 5.3 Eos % (Auto) 0.0 Baso % (Auto) 0.3 Neut # (Auto) 19.1 H Lymph # (Auto) 2.0 [place] # (Auto) 1.2 H Eos # (Auto) 0.0 Baso # (Auto) 0.1 WBC Differential . Diff Scan Differential Comment Auto diff final Toxic Granulation PT 11.9 H INR 1.2 APTT 34.7 H Sodium 134 L Potassium 3.1 L Chloride 98 Carbon Dioxide 28.5 Anion Gap 8 BUN 12 Creatinine 0.73 Estimated GFR Greater than 89 Random Glucose 118 H Lactic Acid Calcium 8.1 L Calcium Adj for Albumin Total Bilirubin 0.8 AST 24 ALT 35 Alkaline Phosphatase 126 H Total Creatine Kinase 23 L Troponin I Less than 0.02 L Total Protein 7.0 D Albumin 1.8 L Urine Color Urine Clarity Urine pH Ur Specific [place] Urine Protein Urine Glucose (UA) Urine Ketones Urine Occult Blood Urine Nitrate Urine Bilirubin Urine Urobilinogen Ur Leukocyte Esterase Urine RBC Urine WBC Ur Squamous Epith Cells Urine Mucus Micro UA Comment Ur Microscopic Review Urine Culture Comments 10/28/18 10/28/18 10/28/18 16:35 17:25 21:10 CBC w Diff WBC RBC Hgb Hct MCV MCH MCHC RDW Plt Count MPV Neut % (Auto) Lymph % (Auto) [place] % (Auto) Eos % (Auto) Baso % (Auto) Neut # (Auto) Lymph # (Auto) [place] # (Auto) Eos # (Auto) Baso # (Auto) WBC Differential Diff Scan Differential Comment Toxic Granulation PT INR APTT Sodium Potassium Chloride Carbon Dioxide Anion Gap BUN Creatinine Estimated GFR Random Glucose Lactic Acid 2.4 H 2.1 H Calcium Calcium Adj for Albumin Total Bilirubin AST ALT Alkaline Phosphatase Total Creatine Kinase Troponin I Total Protein Albumin Urine Color Yellow Urine Clarity Clear Urine pH 6.0 Ur Specific [place] 1.017 Urine Protein 30 H Urine Glucose (UA) Negative Urine Ketones Negative Urine Occult Blood Negative Urine Nitrate Negative Urine Bilirubin Negative Urine Urobilinogen Less than 2 Ur Leukocyte Esterase Negative Urine RBC 1 Urine WBC 5 Ur Squamous Epith Cells <1 Urine Mucus Few H Micro UA Comment Culture not ind Ur Microscopic Review Not Reportable Urine Culture Comments Culture not ind 10/29/18 10/29/18 07:10 07:10 CBC w Diff Slide review pending WBC 20.8 H RBC 3.92 L Hgb 10.9 L Hct 31.6 L MCV 80.8 MCH 27.8 MCHC 34.4 RDW 15.4 Plt Count 170 MPV 8.9 Neut % (Auto) 91.4 H Lymph % (Auto) 5.6 L [place] % (Auto) 1.6 Eos % (Auto) 0.8 Baso % (Auto) 0.6 Neut # (Auto) 19.0 H Lymph # (Auto) 1.2 [place] # (Auto) 0.3 Eos # (Auto) 0.2 Baso # (Auto) 0.1 WBC Differential . Diff Scan Auto diff confirmed Differential Comment . Toxic Granulation 1+ H PT INR APTT Sodium 137 Potassium 3.1 L Chloride 101 Carbon Dioxide 27.4 Anion Gap 9 BUN 10 Creatinine 0.69 Estimated GFR Greater than 89 Random Glucose 110 H Lactic Acid Calcium 7.4 L* Calcium Adj for Albumin 9.3 Total Bilirubin AST ALT Alkaline Phosphatase Total Creatine Kinase Troponin I Total Protein Albumin 1.6 L Urine Color Urine Clarity Urine pH Ur Specific [place] Urine Protein Urine Glucose (UA) Urine Ketones Urine Occult Blood Urine Nitrate Urine Bilirubin Urine Urobilinogen Ur Leukocyte Esterase Urine RBC Urine WBC Ur Squamous Epith Cells Urine Mucus Micro UA Comment Ur Microscopic Review Urine Culture Comments Microbiology 10/28/18 16:35 Blood - Peripheral Aerobic Blood Culture - Preliminary gram positive cocci 10/28/18 16:35 Blood - Peripheral Anaerobic Blood Culture - Preliminary gram positive cocci 10/28/18 16:30 Blood - Peripheral Aerobic Blood Culture - Preliminary gram positive cocci 10/28/18 16:30 Blood - Peripheral Anaerobic Blood Culture - Preliminary gram positive cocci 10/28/18 17:25 Urine - Clean Catch Urine Streptococcus pneumoniae Antigen ( M - Final Presumptive negative for streptococcus pneumoniae antigen, suggesting no current or recent infection. Infection due to Streptococcus pneumoniae cannot be ruled out since the antigen present in the sample may be below the detection limit of the test. 10/28/18 17:25 Urine - Clean Catch Urine Legionella Antigen - Final Presumptive negative for Legionella pneumophila serogroup 1 antigen in urine, suggesting no recent or recurrent infection. Infection due to Legionella cannot be ruled out since other serogroups and species may cause disease, antigen may not be present in urine in early infection, and the level of antigen present in the urine may be below the detection limit of the test. 10/28/18 17:25 Nasal Wash Influenza Types A,B Antigen - Final Negative for FLU A and B antigen Infection due to influenza A or B cannot be ruled out since the antigen present in the sample may be below the detection limit of the test. - Imaging Impressions Hand X-Ray 10/28/18 00:00 CONCLUSION: Soft tissue swelling over the dorsum of the hand with no underlying bony abnormality. Chest X-Ray 10/28/18 16:09 CONCLUSION: Slight worsening in aeration. Assessment and Plan - Plan This is a 48-year-old male patient with: Bacteremia Severe sepsis Community acquired bilateral pneumonia -Met criteria with elevated lactic acid, leukocytosis and tachycardia, + blood cultures x 4. Will repeat. Hold off on ID consult until second cultures resulted. -Chest x-ray shows slight interval worsening in aeration with increasing confluence of bibasilar infiltrates -Will continued Vancomycin/Zosyn IV. -Repeat lactic acid per sepsis protocol. -Added incentive spirometry. Mucinex. Sputum culture. Duonebs as needed for shortness of breath. -Repeat CBC tomorrow am. Follow. -Supplemental O2 as needed to keep sats >92%. -Supportive care. Left hand cellulitis suspect secondary to IV drug use History of IVDU, Dilaudid and heroin. -Patient reports last injection was approximately 1 week ago -Antibiotics as above -Cultures as above -Hand x-ray showing soft tissue swelling. -Echo pending to rule out endocarditis. -Encouraged elevation of extremity. Cellulitis marked. Assess for changes. Opiate abuse/chronic pain -EFORCSE record review showed that patient receives 30 mg oxycodone 3 times daily. Continue. Hypertension -Patient not on any home antihypertensives -Clonidine as needed. -Monitor BP trends. Hypokalemia -Status post p.o. repletion. Replete as needed. -Monitor BMP. Tobacco abuse -Nicotine patch given. Encouraged cessation. DVT Prophylaxis: SCDs.
--- NOTE | 2018-10-29 09:35 | P.PNIM ---
Physical Exam Vital signs: Vital Signs 10/28/18 14:26 10/28/18 16:02 10/28/18 16:09 Temperature 97.8 F 98.5 F Pulse Rate 108 H 109 H 107 H Respiratory Rate 20 20 Blood Pressure 139/81 148/87 H Pulse Oximetry 94 L 96 95 10/28/18 18:16 10/28/18 18:33 10/28/18 20:00 Temperature 99.8 F H Pulse Rate 109 H 120 H Respiratory Rate 20 22 Blood Pressure 156/87 H 143/75 H Pulse Oximetry 94 L 94 L 10/28/18 20:50 10/28/18 22:55 10/29/18 00:00 Temperature 99.7 F H 100.6 F H Pulse Rate 110 H 105 H Respiratory Rate 18 18 18 Blood Pressure 158/87 H 124/77 Pulse Oximetry 93 L 86 L 10/29/18 00:30 10/29/18 04:00 10/29/18 04:52 Temperature 98.6 F Pulse Rate 107 H 96 H Respiratory Rate 18 18 Blood Pressure 143/88 H Pulse Oximetry 96 10/29/18 07:00 10/29/18 07:20 10/29/18 08:09 Temperature 98.9 F 98.9 F Pulse Rate 90 90 Respiratory Rate 18 17 Blood Pressure 124/89 124/89 Pulse Oximetry 98 98 Intake & Output 10/28/18 10/29/18 10/29/18 18:59 06:59 18:59 Intake Total 1300 / 1300 1880 / 1880 515 / 515 Output Total 1550 / 1550 250 / 250 Balance 1300 / 1300 330 / 330 265 / 265 Weight 68.039 kg 66.3 kg Intake: IV 1300 / 1300 200 / 200 515 / 515 Zosyn 3.375 GM Premix 50 ML @ 50 / 50 100 mls/hr IV.SIG ONCE ONE Rx#: [id number] Zosyn 4.5 GM Premix 4.5 gm In 200 / 200 100 ml @ 200 mls/hr IV.SIG Q6H NBA Rx#:[id number] NS Inj 1,000 ML @ 1000 mls/hr 1000 / 1000 IV.SIG BOLUS NBA Rx#:[id number] Vancomycin Inj 1,000 MG In NS 250 / 250 Inj 250 ML @ 250 mls/hr IV.SIG ONCE ONE Rx#:[id number] Vancomycin Inj 1,500 MG In NS 515 / 515 Inj 500 ML @ 250 mls/hr IV.SIG Q12H [facility] Rx#:[id number] Oral 1680 / 1680 Output: Urine 1550 / 1550 250 / 250 Other: # Voids 2 Weight On Admission 68.353 kg Results - Labs CBC & Chem 7: 10/29/18 07:10 10/29/18 07:10 Laboratory Results - last 24 hr 10/28/18 10/28/18 10/28/18 16:35 16:35 16:35 CBC w Diff WBC 22.3 H RBC 4.08 L Hgb 11.4 L Hct 33.4 L MCV 81.8 MCH 28.0 MCHC 34.2 RDW 16.3 Plt Count 137 L MPV 8.4 Neut % (Auto) 85.3 H Lymph % (Auto) 9.1 [place] % (Auto) 5.3 Eos % (Auto) 0.0 Baso % (Auto) 0.3 Neut # (Auto) 19.1 H Lymph # (Auto) 2.0 [place] # (Auto) 1.2 H Eos # (Auto) 0.0 Baso # (Auto) 0.1 WBC Differential . Diff Scan Differential Comment Auto diff final Toxic Granulation PT 11.9 H INR 1.2 APTT 34.7 H Sodium 134 L Potassium 3.1 L Chloride 98 Carbon Dioxide 28.5 Anion Gap 8 BUN 12 Creatinine 0.73 Estimated GFR Greater than 89 Random Glucose 118 H Lactic Acid Calcium 8.1 L Calcium Adj for Albumin Total Bilirubin 0.8 AST 24 ALT 35 Alkaline Phosphatase 126 H Total Creatine Kinase 23 L Troponin I Less than 0.02 L Total Protein 7.0 D Albumin 1.8 L Urine Color Urine Clarity Urine pH Ur Specific [place] Urine Protein Urine Glucose (UA) Urine Ketones Urine Occult Blood Urine Nitrate Urine Bilirubin Urine Urobilinogen Ur Leukocyte Esterase Urine RBC Urine WBC Ur Squamous Epith Cells Urine Mucus Micro UA Comment Ur Microscopic Review Urine Culture Comments 10/28/18 10/28/18 10/28/18 16:35 17:25 21:10 CBC w Diff WBC RBC Hgb Hct MCV MCH MCHC RDW Plt Count MPV Neut % (Auto) Lymph % (Auto) [place] % (Auto) Eos % (Auto) Baso % (Auto) Neut # (Auto) Lymph # (Auto) [place] # (Auto) Eos # (Auto) Baso # (Auto) WBC Differential Diff Scan Differential Comment Toxic Granulation PT INR APTT Sodium Potassium Chloride Carbon Dioxide Anion Gap BUN Creatinine Estimated GFR Random Glucose Lactic Acid 2.4 H 2.1 H Calcium Calcium Adj for Albumin Total Bilirubin AST ALT Alkaline Phosphatase Total Creatine Kinase Troponin I Total Protein Albumin Urine Color Yellow Urine Clarity Clear Urine pH 6.0 Ur Specific [place] 1.017 Urine Protein 30 H Urine Glucose (UA) Negative Urine Ketones Negative Urine Occult Blood Negative Urine Nitrate Negative Urine Bilirubin Negative Urine Urobilinogen Less than 2 Ur Leukocyte Esterase Negative Urine RBC 1 Urine WBC 5 Ur Squamous Epith Cells <1 Urine Mucus Few H Micro UA Comment Culture not ind Ur Microscopic Review Not Reportable Urine Culture Comments Culture not ind 10/29/18 10/29/18 07:10 07:10 CBC w Diff Slide review pending WBC 20.8 H RBC 3.92 L Hgb 10.9 L Hct 31.6 L MCV 80.8 MCH 27.8 MCHC 34.4 RDW 15.4 Plt Count 170 MPV 8.9 Neut % (Auto) 91.4 H Lymph % (Auto) 5.6 L [place] % (Auto) 1.6 Eos % (Auto) 0.8 Baso % (Auto) 0.6 Neut # (Auto) 19.0 H Lymph # (Auto) 1.2 [place] # (Auto) 0.3 Eos # (Auto) 0.2 Baso # (Auto) 0.1 WBC Differential . Diff Scan Auto diff confirmed Differential Comment . Toxic Granulation 1+ H PT INR APTT Sodium 137 Potassium 3.1 L Chloride 101 Carbon Dioxide 27.4 Anion Gap 9 BUN 10 Creatinine 0.69 Estimated GFR Greater than 89 Random Glucose 110 H Lactic Acid Calcium 7.4 L* Calcium Adj for Albumin 9.3 Total Bilirubin AST ALT Alkaline Phosphatase Total Creatine Kinase Troponin I Total Protein Albumin 1.6 L Urine Color Urine Clarity Urine pH Ur Specific [place] Urine Protein Urine Glucose (UA) Urine Ketones Urine Occult Blood Urine Nitrate Urine Bilirubin Urine Urobilinogen Ur Leukocyte Esterase Urine RBC Urine WBC Ur Squamous Epith Cells Urine Mucus Micro UA Comment Ur Microscopic Review Urine Culture Comments Microbiology 10/28/18 16:35 Blood - Peripheral Aerobic Blood Culture - Preliminary gram positive cocci 10/28/18 16:35 Blood - Peripheral Anaerobic Blood Culture - Preliminary gram positive cocci 10/28/18 16:30 Blood - Peripheral Aerobic Blood Culture - Preliminary gram positive cocci 10/28/18 16:30 Blood - Peripheral Anaerobic Blood Culture - Preliminary gram positive cocci 10/28/18 17:25 Urine - Clean Catch Urine Streptococcus pneumoniae Antigen ( M - Final Presumptive negative for streptococcus pneumoniae antigen, suggesting no current or recent infection. Infection due to Streptococcus pneumoniae cannot be ruled out since the antigen present in the sample may be below the detection limit of the test. 10/28/18 17:25 Urine - Clean Catch Urine Legionella Antigen - Final Presumptive negative for Legionella pneumophila serogroup 1 antigen in urine, suggesting no recent or recurrent infection. Infection due to Legionella cannot be ruled out since other serogroups and species may cause disease, antigen may not be present in urine in early infection, and the level of antigen present in the urine may be below the detection limit of the test. 10/28/18 17:25 Nasal Wash Influenza Types A,B Antigen - Final Negative for FLU A and B antigen Infection due to influenza A or B cannot be ruled out since the antigen present in the sample may be below the detection limit of the test. - Imaging Impressions Hand X-Ray 10/28/18 00:00 CONCLUSION: Soft tissue swelling over the dorsum of the hand with no underlying bony abnormality. Chest X-Ray 10/28/18 16:09 CONCLUSION: Slight worsening in aeration. Assessment and Plan - Plan Assessment/plan: 1. Pneumonia/sepsis Patient with elevated lactic acid, leukocytosis and tachycardia Chest x-ray shows slight interval worsening in aeration with increasing confluence of bibasilar infiltrates Vancomycin/Zosyn Blood cultures pending Repeat lactic acid pending 2. IV drug abuse/left hand cellulitis Patient reports last injection was approximately 1 week ago Antibiotics as above Cultures as above Hand x-ray pending Echo pending to rule out endocarditis 3. Opiate abuse/chronic pain EFORCSE record review showed that patient receives 30 mg oxycodone 3 times daily Patient will receive oxycodone 10 mg p.o. every 6 hours as needed 4. Hypertension Patient not on any home antihypertensives Clonidine as needed 5. Hypokalemia Status post p.o. repletion Monitor BMP FEN Regular diet Electrolytes: As above NS 100 cc/hour
[2018-10-29] MEDS: Senna/Docusate Sodium 8.6/50 MG Tablet PO SCH ×2 (11:00→21:11)
--- NOTE | 2018-10-29 12:11 | ECG ---
Date Performed: 10/28/2018 Time Performed: 15:57:17 PTAGE: 48 years EKG: SINUS TACHYCARDIA VOLTAGE CRITERIA FOR LVH MODERATE ST DEPRESSION ABNORMAL ECG Since the PREVIOUS TRACING , no significant change noted PREVIOUS TRACIN10/26/2018 03.49 DOCTOR: Fab Appiah Interpretating Date/Time 10/29/2018 12:09:39
[2018-10-29] MEDS: Acetaminophen 325 MG Tablet PO PRN (17:11)
[2018-10-29 21:18] LABS: Hepatitis A IgM Antibody Nonreactive (Nonreactive); Hepatitits B Surface Antigen Nonreactive (Nonreactive)
[2018-10-30] MEDS: Piperacil/Tazo 4.5 GM Premix 4.5 GM/100 ML BAG IV.SIG SCH ×3 (00:15→14:10)
[2018-10-30] MEDS: Acetaminophen 325 MG Tablet PO PRN ×2 (00:58→23:51)
[2018-10-30] MEDS: Vancomycin Inj 1,500 MG in Sodium Chlor 0.9% Inj 500 ML IV.SIG SCH ×2 (03:50→15:45)
[2018-10-30 06:16] LABS: Chloride 101 meq/L (98-107); Potassium 3.4 meq/L (3.5-5.1); Sodium 138 meq/L (136-145)
[2018-10-30 06:21] LABS: Anion Gap 8 meq/L (5-15); Blood Urea Nitrogen 10 mg/dL (7-18); Calcium 7.7 mg/dL (8.5-10.1); Carbon Dioxide 28.8 meq/L (21.0-32.0); Glucose,Random 93 mg/dL (74-106)
[2018-10-30 06:22] LABS: Baso # (Auto) 0.2 th/mm3 (0.0-0.2); Baso % (Auto) 0.7 % (0.0-2.0); Eos # (Auto) 0.2 th/mm3 (0.0-0.4); Hematocrit 32.4 % (39.0-51.0); Hemoglobin 10.8 gm/dL (13.0-17.0); Lymph # (Auto) 2.4 th/mm3 (1.0-4.8); Lymph % (Auto) 9.9 % (9.0-44.0); Mean Corpuscular HGB Conc 33.3 % (32.0-36.0); Mean Corpuscular Hemoglobin 27.5 pg (27.0-34.0); Mean Corpuscular Volume 82.7 fL (80.0-100.0); Mean Platelet Volume 8.9 fL (7.0-11.0); Mono # (Auto) 1.9 th/mm3 (0.0-0.9); Mono % (Auto) 7.7 % (0.0-8.0); Neut # (Auto) 19.7 th/mm3 (1.8-7.7); Neut % (Auto) 80.7 % (16.0-70.0); Platelet Count 186 th/mm3 (150-450); Red Blood Count 3.91 mil/mm3 (4.50-5.90); Red Cell Distribution Width 15.7 % (11.6-17.2); White Blood Count 24.4 th/mm3 (4.0-11.0)
[2018-10-30 06:24] LABS: Glomerular Filtration Rate Greater Than 89 mL/min (>89)
[2018-10-30 06:50] LABS: Platelet Estimate Normal (Normal); Platelet Morphology Normal (Normal); RBC Morphology Normal (Normal)
--- NOTE | 2018-10-30 08:18 | ECHRPT ---
Indication: CONCLUSIONS Normal left ventricular size. Wall thickness is normal. The left ventricular systolic function is normal with an estimated ejection fraction in the range of 60-65%. No regional wall motion abnormalities are present. Moderate thickening and mild calcification of the noncoronary aortic cusp. BP: / HR: Rhythm: Sinus MEASUREMENTS (Male / Female) Normal Values Technical Quality:Fair 2D ECHO LV Diastolic Diameter PLAX 4.7 cm 4.2 - 5.9 / 3.9 - 5.3 cm LV Systolic Diameter PLAX 3.5 cm IVS Diastolic Thickness 0.8 cm 0.6 - 1.0 / 0.6 - 0.9 cm LVPW Diastolic Thickness 0.8 cm 0.6 - 1.0 / 0.6 - 0.9 cm LV Relative Wall Thickness 0.4 RV Internal Dim ED PLAX 2.5 cm LVOT Diameter 1.8 cm Aortic Root Diameter 2.9 cm LA Systolic Diameter LX 2.7 cm 3.0 - 4.0 / 2.7 - 3.8 cm M-MODE AV Cusp Separation MM 1.5 cm DOPPLER AV Peak Velocity 179.0 cm/s AV Peak Gradient 12.8 mmHg AV Mean Gradient 6.0 mmHg AV Velocity Time Integral 24.7 cm LVOT Peak Velocity 105.0 cm/s LVOT Peak Gradient 4.4 mmHg LVOT Velocity Time Integral 16.7 cm AV Area Cont Eq vti 1.7 cm AV Area Cont Eq pk 1.5 cm Mitral E Point Velocity 97.7 cm/s Mitral A Point Velocity 95.8 cm/s Mitral E to A Ratio 1.0 LV E' Lateral Velocity 13.2 cm/s Mitral E to LV E' Lateral Ratio 7.4 LV E' Septal Velocity 10.3 cm/s Mitral E to LV E' Septal Ratio 9.5 PV Peak Velocity 94.7 cm/s PV Peak Gradient 3.6 mmHg FINDINGS LEFT VENTRICLE Normal left ventricular size. Wall thickness is normal. The left ventricular systolic function is normal with an estimated ejection fraction in the range of 60-65%. No regional wall motion abnormalities are present. RIGHT VENTRICLE Normal right ventricular size and systolic function. LEFT ATRIUM The left atrial size is normal. RIGHT ATRIUM The right atrial size is normal. ATRIAL SEPTUM No atrial level shunt is demonstrated by color flow Doppler interrogation. AORTA The aortic root and proximal ascending aorta are not well visualized. MITRAL VALVE Structurally normal mitral valve. No mitral valve stenosis or regurgitation. AORTIC VALVE Moderate thickening and mild calcification of the noncoronary aortic cusp. TRICUSPID VALVE Structurally normal tricuspid valve. No tricuspid valve stenosis or regurgitation. PULMONARY VALVE The pulmonary valve is not well visualized. VESSELS The inferior vena cava is normal in size. PERICARDIUM No pericardial effusion. Basilio Brizuela MD (Electronically Signed) Final Date:30 October 2018 08:16
[2018-10-30] MEDS: Senna/Docusate Sodium 8.6/50 MG Tablet PO SCH ×3 (08:20→21:24)
--- NOTE | 2018-10-30 10:02 | P.PNIM ---
Subjective Interval history: Follow up bacteremia, pneumonia, left thumb cellulitis. Patient seen and examined, lying in bed comfortably in nad. States he feels much improved today. Does complain that his left thumb feels tight, erythema is improving some, swelling has improved. TMAX overnight 100.5. Repeat BC gram + x 2 bottles. Continue to monitor. Eating well. Pain is controlled. PT to evaluate patient today. Patient complaint of neck and back pain, will check MRI. Spoke with ID. Physical Exam Vital signs: Vital Signs 10/29/18 11:24 10/29/18 11:29 10/29/18 12:00 Temperature 97.2 F L 97.2 F L Pulse Rate 88 88 Respiratory Rate 17 17 Blood Pressure 151/96 H 151/96 H Pulse Oximetry 96 93 L 10/29/18 17:17 10/29/18 20:00 10/30/18 00:00 Temperature 100.7 F H 98.3 F 100.5 F H Pulse Rate 116 H 106 H 120 H Respiratory Rate 16 20 20 Blood Pressure 171/90 H 136/81 155/86 H Pulse Oximetry 94 L 92 L 91 L 10/30/18 04:00 10/30/18 08:00 Temperature 97.8 F 98.6 F Pulse Rate 92 H 85 Respiratory Rate 20 17 Blood Pressure 132/82 141/96 H Pulse Oximetry 93 L 92 L Intake & Output 10/29/18 10/30/18 10/30/18 18:59 06:59 18:59 Intake Total 2315 / 2315 2295 / 2295 Output Total 250 / 250 1300 / 1300 Balance 2065 / 2065 2295 / 2295 -1300 / -1300 Weight 69 kg Intake: IV 615 / 615 1815 / 1815 NS + KCl 20 mEq Inj 1,000 ML @ 1000 / 1000 100 mls/hr IV.CONT .Q10H NBA Rx #:[id number] Zosyn 4.5 GM Premix 4.5 gm In 100 / 100 300 / 300 100 ml @ 200 mls/hr IV.SIG Q6H NBA Rx#:[id number] Vancomycin Inj 1,500 MG In NS 515 / 515 515 / 515 Inj 500 ML @ 250 mls/hr IV.SIG Q12H NBA Rx#:[id number] Oral 1700 / 1700 480 / 480 Output: Urine 250 / 250 1300 / 1300 Other: # Voids 3 3 Narrative: Gen.: No acute distress Head: Normocephalic. Atraumatic. EENT: Pupils equal round and reactive to light. Nose without drainage. Airway intact. Throat without injection. Cardiovascular: Regular rate and rhythm. No murmurs, rubs or gallops. Respiratory: Bilateral rhonchi. Abdomen: Soft, nontender, nondistended. No peritoneal signs. Musculoskeletal: No gross deformities. No edema. Skin: Erythematous and edematous left thumb has improved, marked from yesterday and not worsening. No fluctuance. Cap refill >2 secs. Neuro: Sensory and motor grossly intact. Cranial nerves II through XII grossly intact. Results - Labs CBC & Chem 7: 10/30/18 04:50 10/30/18 04:50 Laboratory Results - last 24 hr 10/29/18 10/30/18 10/30/18 19:00 04:50 04:50 CBC w Diff Slide review pending WBC 24.4 H RBC 3.91 L Hgb 10.8 L Hct 32.4 L MCV 82.7 MCH 27.5 MCHC 33.3 RDW 15.7 Plt Count 186 MPV 8.9 Neut % (Auto) 80.7 H Lymph % (Auto) 9.9 [place] % (Auto) 7.7 Eos % (Auto) 1.0 Baso % (Auto) 0.7 Neut # (Auto) 19.7 H Lymph # (Auto) 2.4 [place] # (Auto) 1.9 H Eos # (Auto) 0.2 Baso # (Auto) 0.2 WBC Differential . Diff Scan Auto diff confirmed Differential Comment . Platelet Estimate Normal Platelet Morphology Normal RBC Morphology Normal Sodium 138 Potassium 3.4 L Chloride 101 Carbon Dioxide 28.8 Anion Gap 8 BUN 10 Creatinine 0.71 Estimated GFR Greater than 89 Random Glucose 93 Calcium 7.7 L Magnesium 2.0 Hepatitis A IgM Ab Nonreactive Hep Bs Antigen Nonreactive Hep B Core IgM Ab Nonreactive Hep C IgG Ab Reactive H Microbiology 10/28/18 16:35 Blood - Peripheral Aerobic Blood Culture - Preliminary gram positive cocci 10/28/18 16:35 Blood - Peripheral Anaerobic Blood Culture - Preliminary gram positive cocci 10/28/18 16:30 Blood - Peripheral Aerobic Blood Culture - Preliminary gram positive cocci 10/28/18 16:30 Blood - Peripheral Anaerobic Blood Culture - Preliminary gram positive cocci Assessment and Plan - Assessment (1) Bilateral pneumonia Code(s): J18.9 - Pneumonia, unspecified organism Status: Acute (2) Community acquired pneumonia Code(s): J18.9 - Pneumonia, unspecified organism Status: Acute (3) Sepsis Code(s): A41.9 - Sepsis, unspecified organism Status: Acute (4) Cellulitis of hand Code(s): L03.119 - Cellulitis of unspecified part of limb Status: Acute - Plan This is a 48-year-old male patient with: Bacteremia, + blood cultures staphylococcus aureus x 4 bottles Severe sepsis Community acquired bacterial bilateral pneumonia -Met criteria with elevated lactic acid, leukocytosis and tachycardia, + blood cultures x 4. Repeat blood cultures gram + x 2 bottles. Follow. -Initially on Vanco/Zosyn IV. ID consulted, input and recommendations pending. Added Ancef. DC Zosyn. Await sensitivity. -Chest x-ray shows slight interval worsening in aeration with increasing confluence of bibasilar infiltrates -Repeat lactic acid per sepsis protocol. -Continue IVF. -Streptococcus and legionella negative. Influenza negative. -Added incentive spirometry. Mucinex. Sputum culture. Duonebs as needed for shortness of breath. -Repeat CBC tomorrow am. Follow. -Supplemental O2 as needed to keep sats >92%. -Supportive care. Left hand cellulitis suspect secondary to IV drug use History of IVDU, Dilaudid and heroin. -Patient reports last injection was approximately 1 week ago -Antibiotics as above -Cultures as above -Hand x-ray showing soft tissue swelling. Hand CT showing soft tissue swelling. -Echo with adequate EF, no vegetation, does show calcification on aorta. Lipid panel normal. -Encouraged elevation of extremity. Cellulitis marked. Assess for changes. No worsening overnight. Opiate abuse/chronic pain -[facility] record review showed that patient receives 30 mg oxycodone 3 times daily. Continue. Toradol breakthrough pain. Hypertension -Patient not on any home antihypertensives -Clonidine as needed. -Monitor BP trends. Hypokalemia -Status post p.o. repletion. Replete as needed. -Monitor BMP. Tobacco abuse -Nicotine patch given. Encouraged cessation. DVT Prophylaxis: SCDs. (2) Community acquired pneumonia Qualifiers: Laterality: unspecified laterality Qualified Code(s): J18.9 - Pneumonia, unspecified organism (3) Sepsis Qualifiers: Sepsis type: sepsis due to unspecified organism Qualified Code(s): A41.9 - Sepsis, unspecified organism
--- NOTE | 2018-10-30 11:22 | CT ---
EXAM DATE: 10/30/2018 11:16 AM EST AGE/SEX: 48 years / Male INDICATIONS: Left 1st metacarpal phalange joint redness and swelling. Evaluate for cellulitis. CLINICAL DATA: This is the patient's initial encounter. Patient reports that signs and symptoms have been present for 1 week and indicates a pain score of 0/10. MEDICAL/SURGICAL HISTORY: Myocardial infarction. Hypertension. Fusion, cervical. Inguinal hernia repair. RADIATION DOSE: 12.75 CTDI (mGy) COMPARISON: No prior exams available for comparison. TECHNIQUE: Multiple contiguous axial images were acquired using a multirow detector CT scanner witho ut contrast. Multiplanar reconstruction was performed in the sagittal and coronal planes. Using aut omated exposure control and adjustment of the mA and/or kV according to patient size, radiation dose was kept as low as reasonably achievable to obtain optimal diagnostic quality images. DICOM format i mage data is available electronically for review and comparison. FINDINGS: Bones: The bony structures about the hand are in normal alignment. The distal radius, distal ulna a nd carpus are intact. No fracture is seen. No areas of bony destruction are seen. Joints: Bones and joints are normally aligned. There are some hypertrophic change at the first carpo metacarpal joint. Soft Tissues: Soft tissue swelling at the lateral aspect of the first digit. No focal fluid collecti on is seen. Other: No foreign bodies seen. CONCLUSION: 1. Soft tissue swelling at the lateral aspect of the first digit. 2. No acute bony changes seen. Electronically signed by: Yrn Pineda MD 10/30/2018 11:20 AM EST
[2018-10-30 11:54] LABS: Chol/HDL Ratio 6.41 Ratio; HDL Cholesterol 11.7 mg/dL (40.0-60.0)
[2018-10-30] MEDS ORDERED: Pharmacy Ordered Lab Info OTHER ONE (14:45)
--- NOTE | 2018-10-30 15:27 | P.DIET ---
Nutritional Evaluation Type of nutrition evaluation: initial Nutrition consult regarding: Diet Evaluation Nutrition screening: Weight Loss > 10 lbs Screening comments: 10/28 WLS Objective - Diagnosis pneumonia, sepsis, hypokalemia - Objective Body Mass Index: 20.6 % IBW: 85 (IBW = 178lb) Body Weight Used for Calculations: Actual (69kg) Energy Needs - Lower Range (kCal/kg): 30 Energy Needs - Upper Range (kCal/kg): 35 Lower Limit kCal/kg (kCals): 2,070 Upper Limit kCal/kg (kCals): 2,415 Lower Limit Protein Factor (Grams per Kg): 1.1 Upper Limit Protein Factor (Grams per Kg): 1.3 Lower Protein Needs (Protein): 76 Upper Protein Needs (Protein): 90 Dietitian Reviewed in Medical Record: Current diet, Curent medications, Intake & Output, Labs, Medical history Diet Order: regular Oral Diet Intake Amount: Good 75-90% Objective Comments: PMH: cervical vertebral fusion, [place], HTN, hypglycemia Labs: K+ 3.4, total chol 75, HDL 11.7 Assessment Assessment: Pt currently at nutritional risk r/t reported unplanned wt loss more than 10 lbs. Pt has a good appetite, consuming around 75-100% for most meals. RD to recommend Ensure Original BID for pt as PO supplement for additional nutrition. Continue to monitor PO and supplement intake. Labs reviewed, dietitian following. Recommendations: 1. RD to recommend Ensure Original BID for pt as PO supplement for additional nutrition 2. Continue to monitor PO and supplement intake 3. Dietitian following Dietitian to Monitor: Lab values, Supplement acceptance, Intake & Output, Diet tolerance, PO Intake, Medical course
[2018-10-30] MEDS: Ketorolac Inj 30 MG/ML (IVP) Vial IV.PUSH PRN (15:47)
[2018-10-30] MEDS ORDERED: Sod Chloride 0.9% Inj 1,000 ML IV.SIG SCH ×2 (16:00)
[2018-10-30] MEDS: ceFAZolin 2 GM Premix Inj 2 GM/50 ML PIGGYBACK IV.SIG SCH ×2 (16:39→23:01)
[2018-10-31] MEDS ORDERED: Sod Chloride 0.9% Inj 1,000 ML IV.SIG ONE
[2018-10-31] MEDS: Vancomycin Inj 1,500 MG in Sodium Chlor 0.9% Inj 500 ML IV.SIG SCH ×3 (02:26→21:00)
[2018-10-31] MEDS: Ketorolac Inj 30 MG/ML (IVP) Vial IV.PUSH PRN ×3 (05:56→17:36)
--- NOTE | 2018-10-31 08:04 | P.PNIM ---
Subjective Interval history: Follow-up bacteremia Staphylococcus aureus and pneumonia and IV drug use. Patient seen and examined, lying in bed sleeping in no apparent distress. He slept better overnight. Denies any acute events. Febrile overnight. Awaiting ID consult. As well as cardiology consult. Repeat blood cultures positive as well. Continue to monitor. Physical Exam Vital signs: Vital Signs 10/30/18 11:33 10/30/18 17:57 10/30/18 19:56 Temperature 98.4 F 98.6 F Pulse Rate 97 H 87 Respiratory Rate 17 17 20 Blood Pressure 157/98 H 151/86 H Pulse Oximetry 93 L 10/30/18 20:00 10/30/18 23:53 10/31/18 00:00 Temperature 101.5 F H Pulse Rate 79 116 H 107 H Respiratory Rate 18 20 Blood Pressure 170/92 H Pulse Oximetry 94 L 10/31/18 04:00 Temperature 100.4 F H Pulse Rate 107 H Respiratory Rate 20 Blood Pressure 165/89 H Pulse Oximetry 93 L Intake & Output 10/30/18 10/31/18 10/31/18 18:59 06:59 18:59 Intake Total 1785 / 1785 3445 / 3445 Output Total 1300 / 1300 4450 / 4450 Balance 485 / 485 -1005 / -1005 Weight 69.1 kg Intake: IV 1665 / 1665 2365 / 2365 NS + KCl 20 mEq Inj 1,000 ML @ 800 / 800 100 mls/hr IV.CONT .Q10H NBA Rx #:[id number] Zosyn 4.5 GM Premix 4.5 gm In 100 / 100 100 ml @ 200 mls/hr IV.SIG Q6H NBA Rx#:[id number] NS Inj 1,000 ML @ Wide Open IV. 1000 / 1000 1000 / 1000 SIG BOLUS ONE Rx#:[id number] Vancomycin Inj 1,500 MG In NS 515 / 515 515 / 515 Inj 500 ML @ 250 mls/hr IV.SIG Q12H NBA Rx#:[id number] Ancef 2 GM Premix Inj 2 gm In 50 / 50 50 / 50 50 ml @ 200 mls/hr IV.SIG Q8H NBA Rx#:[id number] Oral 120 / 120 1080 / 1080 Output: Urine 1300 / 1300 4450 / 4450 Narrative: Gen.: No acute distress Head: Normocephalic. Atraumatic. EENT: Pupils equal round and reactive to light. Nose without drainage. Airway intact. Throat without injection. Cardiovascular: Regular rate and rhythm. No murmurs, rubs or gallops. Respiratory: Bilateral rhonchi. Abdomen: Soft, nontender, nondistended. No peritoneal signs. Musculoskeletal: No gross deformities. No edema. Skin: Erythematous and edematous left thumb has improved, marked from yesterday and not worsening. No fluctuance. Cap refill >2 secs. Neuro: Sensory and motor grossly intact. Cranial nerves II through XII grossly intact. Results - Labs CBC & Chem 7: 10/30/18 04:50 10/30/18 04:50 Laboratory Results - last 24 hr 10/30/18 10/30/18 04:50 16:55 Lactic Acid 0.7 Triglycerides 112 Cholesterol 75 L LDL Cholesterol, Calc 41 HDL Cholesterol 11.7 L Cholesterol/HDL Ratio 6.41 Microbiology 10/29/18 13:25 Blood - Peripheral Aerobic Blood Culture - Preliminary gram positive cocci 10/29/18 13:25 Blood - Peripheral Anaerobic Blood Culture - Preliminary No growth in 1 day 10/29/18 13:20 Blood - Peripheral Aerobic Blood Culture - Preliminary gram positive cocci 10/29/18 13:20 Blood - Peripheral Anaerobic Blood Culture - Preliminary No growth in 1 day 10/28/18 16:35 Blood - Peripheral Aerobic Blood Culture - Final Staphylococcus aureus 10/28/18 16:35 Blood - Peripheral Anaerobic Blood Culture - Final Staphylococcus aureus 10/28/18 16:30 Blood - Peripheral Aerobic Blood Culture - Final Staphylococcus aureus 10/28/18 16:30 Blood - Peripheral Anaerobic Blood Culture - Final Staphylococcus aureus - Imaging Impressions Hand CT 10/30/18 00:00 CONCLUSION: 1. Soft tissue swelling at the lateral aspect of the first digit. 2. No acute bony changes seen. Assessment and Plan - Assessment (1) Bilateral pneumonia Code(s): J18.9 - Pneumonia, unspecified organism Status: Acute (2) Community acquired pneumonia Code(s): J18.9 - Pneumonia, unspecified organism Status: Acute (3) Sepsis Code(s): A41.9 - Sepsis, unspecified organism Status: Acute (4) Cellulitis of hand Code(s): L03.119 - Cellulitis of unspecified part of limb Status: Acute - Plan This is a 48-year-old male patient with: Bacteremia, + blood cultures staphylococcus aureus x 4 bottles Severe sepsis Community acquired bacterial bilateral pneumonia -Met criteria with elevated lactic acid, leukocytosis and tachycardia, + blood cultures x 4 staph aureus. Repeat blood cultures gram + staph aureus x 2 bottles. -Initially on Vanco/Zosyn IV. ID consulted, input and recommendations pending. Added Ancef. DC Zosyn. Sensitivity noted. -Chest x-ray shows slight interval worsening in aeration with increasing confluence of bibasilar infiltrates -Lactic acidosis improved. -Continue IVF. Was given bolus overnight. -Streptococcus and legionella negative. Influenza negative. -Added incentive spirometry. Mucinex. Sputum culture. Duonebs as needed for shortness of breath. -Awaiting labs this morning. Follow. -Supplemental O2 as needed to keep sats >92%. On RA comfortable. -Supportive care. Left hand cellulitis suspect secondary to IV drug use. Improving. History of IVDU, Dilaudid and heroin. -Patient reports last injection was approximately 1 week ago -Antibiotics as above -Cultures as above -Hand x-ray showing soft tissue swelling. Hand CT showing soft tissue swelling. -Echo with adequate EF, no vegetation, does show calcification on aorta. Lipid panel normal. -Encouraged elevation of extremity. Cellulitis marked. Assess for changes. No worsening overnight. Opiate abuse/chronic pain -[facility] record review showed that patient receives 30 mg oxycodone 3 times daily. Continue. Toradol breakthrough pain. Hypertension -Patient not on any home antihypertensives -Clonidine as needed. -Monitor BP trends. Hypokalemia -Status post p.o. repletion. Replete as needed. -Monitor BMP. Tobacco abuse -Nicotine patch given. Encouraged cessation. DVT Prophylaxis: SCDs. Discharge Planning: Awaiting ID and cardiology consult. (2) Community acquired pneumonia Qualifiers: Laterality: unspecified laterality Qualified Code(s): J18.9 - Pneumonia, unspecified organism (3) Sepsis Qualifiers: Sepsis type: sepsis due to unspecified organism Qualified Code(s): A41.9 - Sepsis, unspecified organism
[2018-10-31] MEDS: Senna/Docusate Sodium 8.6/50 MG Tablet PO SCH ×2 (08:33→20:52)
[2018-10-31] MEDS: ceFAZolin 2 GM Premix Inj 2 GM/50 ML PIGGYBACK IV.SIG SCH ×2 (08:33→16:01)
[2018-10-31 11:00] LABS: Baso # (Auto) 0.5 th/mm3 (0.0-0.2); Baso % (Auto) 2.6 % (0.0-2.0); Eos # (Auto) 0.1 th/mm3 (0.0-0.4); Eos % (Auto) 0.7 % (0.0-4.0); Hematocrit 34.8 % (39.0-51.0); Hemoglobin 11.8 gm/dL (13.0-17.0); Lymph # (Auto) 1.9 th/mm3 (1.0-4.8); Lymph % (Auto) 9.8 % (9.0-44.0); Mean Corpuscular HGB Conc 33.8 % (32.0-36.0); Mean Corpuscular Hemoglobin 27.8 pg (27.0-34.0); Mean Corpuscular Volume 82.4 fL (80.0-100.0); Mean Platelet Volume 8.9 fL (7.0-11.0); Mono # (Auto) 1.2 th/mm3 (0.0-0.9); Mono % (Auto) 6.5 % (0.0-8.0); Neut # (Auto) 15.3 th/mm3 (1.8-7.7); Neut % (Auto) 80.4 % (16.0-70.0); Platelet Count 197 th/mm3 (150-450); Red Blood Count 4.22 mil/mm3 (4.50-5.90)
[2018-10-31 11:29] LABS: Platelet Estimate Normal (Normal); Platelet Morphology Normal (Normal); RBC Morphology Normal (Normal)
--- NOTE | 2018-10-31 13:07 | MB ---
cc: Norm Smith MD DATE: 10/31/2018 HISTORY OF PRESENT ILLNESS: Sandeep is a 48-year-old gentleman who currently has bacteremia. Consult is obtained for DAMIEN. The patient is sitting in his chair, in no acute distress. Denies dysphagia, chest pain, GI or bleeding, PND, orthopnea, syncope or dizziness. PAST MEDICAL HISTORY: As per history of present illness. Has a history of cervical vertebral fusion, "heart attack." hypertension, hyperglycemia, history of hernia repair. ALLERGIES: 1. BEE VENOM PROTEIN. 2. CYCLOBENZAPRINE. SOCIAL HISTORY: He does smoke every day. Denies alcohol use. MEDICATIONS: In the hospital: 1. Cefazolin. 2. Nicotine patch. 3. Vancomycin. 4. Potassium supplementation. PHYSICAL EXAMINATION: VITAL SIGNS: T-max 101.5, heart rate ranging between 76 and 116, currently 76, blood pressure 135/72, sats 95% on room air. GENERAL: He is alert and oriented x 3, in no acute distress. NECK: Supple. No JVD. No bruit. CARDIOVASCULAR: S1, S2. No murmurs, rubs or gallops. LUNGS: Clear to auscultation bilaterally. ABDOMEN: Soft, nontender, nondistended with positive bowel sounds. EXTREMITIES: No lower extremity edema. LABORATORY DATA: Blood cultures are growing out gram-positive cocci on 10/29/2018, Staphylococcus aureus on 10/28/2018. Hand x-ray 10/28/2018: Soft tissue swelling over the dorsum of the hand with no underlying bony abnormality. EKG: Sinus tachycardia at 103 beats per minute. Echocardiogram 10/29/2018: EF 60-65%, moderate thickening and mild calcification of the noncoronary aortic cusp. Hand CT: Soft tissue swelling at the lateral aspect of the first digit. No acute bony changes seen. White count 24.4, hemoglobin 10.8, hematocrit 32.4, platelet count 186. INR is 1.2. Sodium 138, potassium 3.4, chloride 101, bicarbonate 28.8, BUN 10, creatinine 0.71. Lactic acid 2.4, on 10/28/2018, LDL 41. Hepatitis C, immunoglobulin IgG antibody is reactive DIAGNOSES: 1. Bacteremia. 2. Tobacco abuse. 3. Hepatitis C antibody positive. 4. Hypokalemia. 5. Lactic acidosis. 6. Hypoalbuminemia. 7. Anemia. 8. Elevated white count. 9. Hyponatremia. DISCUSSION: The patient denies dysphagia or chest pain. He is a candidate for transesophageal echocardiography. PLAN: Transfer the patient to the [facility] for transesophageal echocardiography the week of 11/02/2018. I explained the procedure to the patient, and he consents and agrees with the procedure. MD SUDEEP Quick/cole , 10:31 AM , 10:38 AM
[2018-10-31] MEDS: Pharmacy Ordered Lab Info OTHER ONE ×2 (15:46→18:43)
[2018-10-31 19:14] LABS: Chloride 102 meq/L (98-107); Potassium 3.3 meq/L (3.5-5.1); Sodium 138 meq/L (136-145)
[2018-10-31 19:16] LABS: Calcium 7.6 mg/dL (8.5-10.1)
[2018-10-31 19:17] LABS: Anion Gap 6 meq/L (5-15); Blood Urea Nitrogen 14 mg/dL (7-18); Carbon Dioxide 30.1 meq/L (21.0-32.0); Glucose,Random 142 mg/dL (74-106)
[2018-10-31 19:20] LABS: Glomerular Filtration Rate Greater Than 89 mL/min (>89)
[2018-10-31] MEDS ORDERED: Vancomycin Inj 1,500 MG in Sodium Chlor 0.9% Inj 500 ML IV.SIG ONE (20:00)
--- NOTE | 2018-10-31 20:02 | P.CONID ---
History of Present Illness Service: ID Consult date: 10/31/18 Requesting Physician: Pricilla Taylor Reason for Consult: MSSA sepsis Primary Care Provider: No Primary Care Physician History of Present Illness: 48 yo male with IVDU and chronic back pain h/o C spne fracture, sp intrumentation presented with fever, chills lower back and neck pain and hands swelling, pain Blood clx positive for MRA repeat BC + again day later aslso pleuritic chest pain CXR + for infiltrates 2D echo neg for vegetations Pt ws not cooperative on MR 2/2 pain Leukocytsosi with WBC peaking yday @ 24K today fells better less fevers, chills hands improved as well Started on cefazoline Review of Systems All other systems reviewed negative except as stated in HPI PMFSH - History History Provided By: Patient - Medical History Medical History: Medical History (Last Reviewed 10/31/18 @ 19:58 by Tania Smith MD) Cervical vertebral fusion HTN (hypertension) Heart attack Hyperglycemia - Surgical History Surgical History: Surgical History (Last Reviewed 10/31/18 @ 19:58 by Tania Smith MD) History of hernia repair - Family History Family History: Family History (Last Reviewed 10/31/18 @ 19:58 by Tania Smith MD) Other Hypertension Pancreatic cancer - Social History I have reviewed the patient's Social History: Yes - Tobacco History Second Hand Smoke Exposure: Yes Tobacco Use In Past 30 Days: Yes Smoking Status: Current every day smoker Tobacco Type: Cigarettes - Alcohol History How Often Do You Have a Drink Containing Alcohol: Never - Substance Use History Substance History: Active Abuse - Substance Use Type Marijuana Status: Early Remission Route Used: Inhalation Frequency: socially, whenever around Last Used: 1 week ago Comment: pain management Heroin Status: Early Remission Route Used: Intravenously Frequency: monthly Last Used: 4days ago Comment: pain management - Travel History Recent Travel in the [place] Within the Last 8 Weeks: No Recent Travel Out of the Country Within the Last 8 Weeks: No - Immunization History Tetanus Immunization: <5 Years Tetanus Immunization Year if Known: 2015 Hx Influenza Vaccine This Season: Yes Medications and Allergies Active Medications: Active Medications Acetaminophen (Tylenol) 650 mg PO Q4H PRN PRN Reason: Temp > 100.4 Last Admin: 10/30/18 23:51 Dose: 650 mg Al Hydroxide/Mg Hydroxide (Milk Of Magnesia Liq) 30 ml PO Q12H PRN PRN Reason: Mild Constipation Bisacodyl (Dulcolax Supp) 10 mg RECTAL DAILY PRN PRN Reason: SEVERE CONSITIPATION Clonidine HCl (Catapres) 0.1 mg PO Q6H PRN PRN Reason: SBP>160, DBP>90 Last Admin: 10/31/18 01:10 Dose: 0.1 mg Potassium Chloride/Sodium Chloride (Ns + Kcl 20 Meq Inj) 1,000 mls @ 100 mls/ hr IV.CONT .Q10H [facility] Last Infusion: 10/31/18 17:44 Dose: 100 mls/hr Cefazolin Sodium/Dextrose (Ancef 2 Gm Premix Inj) 2 gm in 50 mls @ 200 mls/hr IV.SIG Q8H [facility] Last Infusion: 10/31/18 16:16 Dose: Infused Vancomycin HCl 1,500 mg/ (Sodium Chloride) 515 mls @ 250 mls/hr IV.SIG ONCE ONE Stop: 10/31/18 22:03 Ketorolac Tromethamine (Toradol Inj) 15 mg IV.PUSH Q6H PRN PRN Reason: BREAKTHROUGH PAIN Stop: 11/04/18 14:32 Last Admin: 10/31/18 17:36 Dose: 15 mg Lactulose (Lactulose Liq) 30 ml PO DAILY PRN PRN Reason: SEVERE CONSITIPATION Nicotine (Habitrol 21 Mg Patch.24 Hr) 1 patch T-DERMAL DAILY [facility] Last Admin: 10/31/18 08:33 Dose: Not Given Ondansetron HCl (Zofran Inj) 4 mg IV.PUSH Q6H PRN PRN Reason: NAUSEA OR VOMITING Last Admin: 10/31/18 17:35 Dose: 4 mg Oxycodone HCl (Roxicodone) 30 mg PO Q8H PRN PRN Reason: pain 6-10 Last Admin: 10/31/18 16:36 Dose: 30 mg Pharmacy Profile Note (Vancomycin Consult Pharmacy) 1 each OTHER UNSCH PRN PRN Reason: Pharmacy to dose Potassium Chloride (K-Dur) 20 meq PO ONCE ONE Stop: 10/31/18 20:01 Senna/Docusate Sodium (Evelyne-Colace) 1 tab PO BID [facility] Last Admin: 10/31/18 08:33 Dose: Not Given Sennosides (Senokot) 17.2 mg PO Q12H PRN PRN Reason: Moderate Constipation Sodium Chloride (Ns Flush) 2 ml IV.FLUSH BID [facility] Last Admin: 10/31/18 08:35 Dose: Not Given Sodium Chloride (Ns Flush) 2 ml IV.FLUSH PRN PRN PRN Reason: FLUSH AFTER USING IV ACCESS Temazepam (Restoril) 15 mg PO HS PRN PRN Reason: INSOMNIA Allergies Allergy/AdvReac Type Severity Reaction Status Date / Time bee venom protein (honey bee) Allergy Severe Anaphylaxis Verified 10/29/18 05:18 cyclobenzaprine Allergy Severe MUSCLE Verified 10/29/18 05:18 SPASMS Home Medications Medication Instructions Recorded Confirmed Type oxycodone 30 mg PO Q4-6H PRN 10/26/18 10/28/18 History ibuprofen 600 mg PO TID PRN 10/28/18 10/28/18 History Exam Vital signs: Vital Signs 10/30/18 20:00 10/30/18 23:53 10/31/18 00:00 Temperature 101.5 F H Pulse Rate 79 116 H 107 H Respiratory Rate 18 20 Blood Pressure 170/92 H Pulse Oximetry 94 L 10/31/18 04:00 10/31/18 08:00 10/31/18 12:00 Temperature 100.4 F H 96.4 F L 98.0 F Pulse Rate 107 H 81 80 Respiratory Rate 20 18 20 Blood Pressure 165/89 H 135/72 162/93 H Pulse Oximetry 93 L 95 94 L 10/31/18 16:00 Temperature 98.0 F Pulse Rate 85 Respiratory Rate 16 Blood Pressure 131/82 Pulse Oximetry 94 L Intake & Output 10/31/18 10/31/18 11/01/18 06:59 18:59 06:59 Intake Total 3445 / 3445 1675 / 1675 Output Total 4450 / 4450 1000 / 1000 Balance -1005 / -1005 675 / 675 Weight 69.1 kg Intake: IV 2365 / 2365 1075 / 1075 NS + KCl 20 mEq Inj 1,000 ML @ 800 / 800 975 / 975 100 mls/hr IV.CONT .Q10H [facility] Rx #:[id number] NS Inj 1,000 ML @ Wide Open IV. 1000 / 1000 SIG BOLUS ONE Rx#:[id number] Vancomycin Inj 1,500 MG In NS 515 / 515 Inj 500 ML @ 250 mls/hr IV.SIG Q12H [facility] Rx#:[id number] Ancef 2 GM Premix Inj 2 gm In 50 / 50 100 / 100 50 ml @ 200 mls/hr IV.SIG Q8H [facility] Rx#:[id number] Oral 1080 / 1080 600 / 600 Output: Urine 4450 / 4450 1000 / 1000 Other: # Voids 2 Date of Last Bowel Movement 10/31/18 # Bowel Movements 1 # Emeses 1 - Constitutional no acute distress, thin - Routine HEENT Exam Head: Present: normocephalic, atraumatic Eye: Present: EOMI, PERRL ENT: Present: mucous membranes moist, oropharynx clear - Routine Neck Exam Present: supple, full ROM Comments: scar c/w anterior approach neck sx - Routine Respiratory Exam Present: decreased breath sounds, CTA bilaterally. Absent: accessory muscle use - Routine Cardiovascular Exam Present: RRR, S1, S2. Absent: murmur, gallop, rubs - Routine Abdominal Exam Present: soft, normoactive bowel sounds. Absent: tenderness, distended, rebound , organomegaly, mass - Routine Extremities Exam Present: full ROM. Absent: cyanosis, clubbing, edema - Routine Back/Spine/Pelvis Exam Back/Spine: Absent: paraspinal tenderness, vertebral tenderness - Routine Skin Exam Present: intact, lesions (L thumb, R hand) - Routine Neurological Exam Present: alert, oriented X3, CN II-XII intact, moving all extremities. Absent: sensory deficit, motor deficit Results - Labs CBC & Chem 7: 10/31/18 10:42 10/31/18 18:40 Labs: Laboratory Results - last 24 hr 10/31/18 10/31/18 10:42 18:40 CBC w Diff Slide review pending WBC 19.0 H RBC 4.22 L Hgb 11.8 L Hct 34.8 L MCV 82.4 MCH 27.8 MCHC 33.8 RDW 16.0 Plt Count 197 MPV 8.9 Neut % (Auto) 80.4 H Lymph % (Auto) 9.8 [place] % (Auto) 6.5 Eos % (Auto) 0.7 Baso % (Auto) 2.6 H Neut # (Auto) 15.3 H Lymph # (Auto) 1.9 [place] # (Auto) 1.2 H Eos # (Auto) 0.1 Baso # (Auto) 0.5 H WBC Differential . Diff Scan Auto diff confirmed Differential Comment . Platelet Estimate Normal Platelet Morphology Normal RBC Morphology Normal Sodium 138 Potassium 3.3 L Chloride 102 Carbon Dioxide 30.1 Anion Gap 6 BUN 14 Creatinine 0.80 Estimated GFR Greater than 89 Random Glucose 142 H Calcium 7.6 L - Imaging ITS Impressions Hand X-Ray 10/28/18 00:00 CONCLUSION: Soft tissue swelling over the dorsum of the hand with no underlying bony abnormality. Chest X-Ray 10/28/18 16:09 CONCLUSION: Slight worsening in aeration. Hand CT 10/30/18 00:00 CONCLUSION: 1. Soft tissue swelling at the lateral aspect of the first digit. 2. No acute bony changes seen. Assessment and Plan - Plan MSSA sepsis in IVDU - r/o endocarditis PNA BAck pain, worsninfg of chronic Neck pain, worsening of chroni + retained hardware b/l hand infections cont repeating BC untill sterility documented DAMIEN MR L spine MR C spine MR both hand
[2018-10-31] MEDS: Temazepam 15 MG Capsule PO PRN (20:52)
[2018-11-01] MEDS: ceFAZolin 2 GM Premix Inj 2 GM/50 ML PIGGYBACK IV.SIG SCH ×4 (01:17→23:24)
[2018-11-01] MEDS: Ketorolac Inj 30 MG/ML (IVP) Vial IV.PUSH PRN ×4 (02:03→23:22)
[2018-11-01] MEDS: Senna/Docusate Sodium 8.6/50 MG Tablet PO SCH ×2 (08:19→20:22)
[2018-11-01 08:33] LABS: Baso % (Auto) 0.1 % (0.0-2.0); Eos # (Auto) 0.3 th/mm3 (0.0-0.4); Eos % (Auto) 1.6 % (0.0-4.0); Hematocrit 27.1 % (39.0-51.0); Hemoglobin 9.3 gm/dL (13.0-17.0); Lymph # (Auto) 2.8 th/mm3 (1.0-4.8); Lymph % (Auto) 12.8 % (9.0-44.0); Mean Corpuscular HGB Conc 34.2 % (32.0-36.0); Mean Corpuscular Hemoglobin 28.3 pg (27.0-34.0); Mean Corpuscular Volume 82.9 fL (80.0-100.0); Mean Platelet Volume 9.8 fL (7.0-11.0); Mono # (Auto) 1.3 th/mm3 (0.0-0.9); Mono % (Auto) 5.8 % (0.0-8.0); Neut # (Auto) 17.3 th/mm3 (1.8-7.7); Neut % (Auto) 79.7 % (16.0-70.0); Platelet Count 290 th/mm3 (150-450); Red Blood Count 3.27 mil/mm3 (4.50-5.90); Red Cell Distribution Width 15.8 % (11.6-17.2); White Blood Count 21.7 th/mm3 (4.0-11.0)
[2018-11-01 08:51] LABS: Chloride 104 meq/L (98-107); Potassium 3.7 meq/L (3.5-5.1); Sodium 138 meq/L (136-145)
[2018-11-01 09:09] LABS: Anion Gap 7 meq/L (5-15); Blood Urea Nitrogen 13 mg/dL (7-18); Calcium 7.3 mg/dL (8.5-10.1); Carbon Dioxide 26.6 meq/L (21.0-32.0); Glomerular Filtration Rate Greater Than 89 mL/min (>89); Glucose,Random 132 mg/dL (74-106)
--- NOTE | 2018-11-01 09:53 | P.PNIM ---
Subjective Interval history: Follow-up bacteremia Staphylococcus aureus and pneumonia and IV drug use. Patient seen and examined, lying in bed comfortably in nad. Much improved today. Pain is controlled. Will be transferred to the [facility] to undergo a DAMIEN sometime this week with cardiology. Appreciate ID consult last evening. Continue IV antibiotics. Awaiting MRI. Physical Exam Vital signs: Vital Signs 10/31/18 12:00 10/31/18 16:00 10/31/18 20:00 Temperature 98.0 F 98.0 F 97.5 F L Pulse Rate 80 85 86 Respiratory Rate 20 16 20 Blood Pressure 162/93 H 131/82 138/85 Pulse Oximetry 94 L 94 L 99 11/01/18 00:00 11/01/18 04:00 11/01/18 06:07 Temperature 98.7 F Pulse Rate 100 H 100 H 89 Respiratory Rate 20 Blood Pressure 146/85 H Pulse Oximetry 96 11/01/18 08:00 Temperature 97.9 F Pulse Rate 85 Respiratory Rate 17 Blood Pressure 159/90 H Pulse Oximetry 94 L Intake & Output 10/31/18 11/01/18 11/01/18 18:59 06:59 18:59 Intake Total 1675 / 1675 3035 / 3035 Output Total 1000 / 1000 1200 / 1200 Balance 675 / 675 1835 / 1835 Weight 69.4 kg Intake: IV 1075 / 1075 1565 / 1565 NS + KCl 20 mEq Inj 1,000 ML @ 975 / 975 1000 / 1000 100 mls/hr IV.CONT .Q10H [facility] Rx #:[id number] Vancomycin Inj 1,500 MG In NS 515 / 515 Inj 500 ML @ 250 mls/hr IV.SIG ONCE ONE Rx#:[id number] Ancef 2 GM Premix Inj 2 gm In 100 / 100 50 / 50 50 ml @ 200 mls/hr IV.SIG Q8H [facility] Rx#:[id number] Oral 600 / 600 1470 / 1470 Output: Urine 1000 / 1000 1200 / 1200 Other: # Voids 2 Date of Last Bowel Movement 10/31/18 10/31/18 # Bowel Movements 1 1 # Emeses 1 Narrative: Gen.: No acute distress Head: Normocephalic. Atraumatic. EENT: Pupils equal round and reactive to light. Nose without drainage. Airway intact. Throat without injection. Cardiovascular: Regular rate and rhythm. No murmurs, rubs or gallops. Respiratory: Bilateral rhonchi. Abdomen: Soft, nontender, nondistended. No peritoneal signs. Musculoskeletal: No gross deformities. No edema. Skin: Erythematous and edematous left thumb has improved, marked from yesterday and not worsening. No fluctuance. Cap refill >2 secs. Neuro: Sensory and motor grossly intact. Cranial nerves II through XII grossly intact. Results - Labs CBC & Chem 7: 11/01/18 08:00 11/01/18 08:18 Laboratory Results - last 24 hr 10/31/18 10/31/18 10/31/18 10:42 18:40 18:40 CBC w Diff Slide review pending WBC 19.0 H RBC 4.22 L Hgb 11.8 L Hct 34.8 L MCV 82.4 MCH 27.8 MCHC 33.8 RDW 16.0 Plt Count 197 MPV 8.9 Neut % (Auto) 80.4 H Lymph % (Auto) 9.8 [place] % (Auto) 6.5 Eos % (Auto) 0.7 Baso % (Auto) 2.6 H Neut # (Auto) 15.3 H Lymph # (Auto) 1.9 [place] # (Auto) 1.2 H Eos # (Auto) 0.1 Baso # (Auto) 0.5 H WBC Differential . Diff Scan Auto diff confirmed Differential Comment . Platelet Estimate Normal Platelet Morphology Normal RBC Morphology Normal ESR Sodium 138 Potassium 3.3 L Chloride 102 Carbon Dioxide 30.1 Anion Gap 6 BUN 14 Creatinine 0.80 Estimated GFR Greater than 89 Random Glucose 142 H Calcium 7.6 L Vancomycin Trough 10.5 H 10/31/18 11/01/18 11/01/18 18:40 08:00 08:18 CBC w Diff Slide review pending WBC 21.7 H RBC 3.27 L Hgb 9.3 L D Hct 27.1 L MCV 82.9 MCH 28.3 MCHC 34.2 RDW 15.8 Plt Count 290 D MPV 9.8 Neut % (Auto) 79.7 H Lymph % (Auto) 12.8 [place] % (Auto) 5.8 Eos % (Auto) 1.6 Baso % (Auto) 0.1 Neut # (Auto) 17.3 H Lymph # (Auto) 2.8 [place] # (Auto) 1.3 H Eos # (Auto) 0.3 Baso # (Auto) 0.0 WBC Differential Diff Scan Differential Comment . Platelet Estimate Platelet Morphology RBC Morphology ESR 119 H Sodium 138 Potassium 3.7 Chloride 104 Carbon Dioxide 26.6 Anion Gap 7 BUN 13 Creatinine 0.77 Estimated GFR Greater than 89 Random Glucose 132 H Calcium 7.3 L* Vancomycin Trough Microbiology 10/29/18 13:25 Blood - Peripheral Aerobic Blood Culture - Final Staphylococcus aureus 10/29/18 13:25 Blood - Peripheral Anaerobic Blood Culture - Preliminary No growth in 2 days 10/29/18 13:20 Blood - Peripheral Aerobic Blood Culture - Final Staphylococcus aureus 10/29/18 13:20 Blood - Peripheral Anaerobic Blood Culture - Preliminary No growth in 2 days Assessment and Plan - Assessment (1) Bilateral pneumonia Code(s): J18.9 - Pneumonia, unspecified organism Status: Acute (2) Community acquired pneumonia Code(s): J18.9 - Pneumonia, unspecified organism Status: Acute (3) Sepsis Code(s): A41.9 - Sepsis, unspecified organism Status: Acute (4) Cellulitis of hand Code(s): L03.119 - Cellulitis of unspecified part of limb Status: Acute - Plan This is a 48-year-old male patient with: Bacteremia, + blood cultures MSSA x 4 bottles Severe sepsis Community acquired bacterial bilateral pneumonia Rule out endocarditis -Met criteria with elevated lactic acid, leukocytosis and tachycardia, + blood cultures x 4 staph aureus. Repeat blood cultures gram + staph aureus x 2 bottles. Continue repeating until sterility noted. -Initially on Vanco/Zosyn IV. ID consulted, appreciate input and recommendations. Continue Ancef. DC Zosyn/Vanco. Sensitivity noted. -Chest x-ray shows slight interval worsening in aeration with increasing confluence of bibasilar infiltrates -Lactic acidosis improved. -Continue IVF. Was given bolus overnight. -Streptococcus and legionella negative. Influenza negative. -Added incentive spirometry. Mucinex. Sputum culture. Duonebs as needed for shortness of breath. -Awaiting labs this morning. Follow. -Supplemental O2 as needed to keep sats >92%. On RA comfortable. -Cardiology consulted, appreciate input and recommendations. Will be transferred to [facility] to undergo a DAMIEN this week with cardiology. -Supportive care. Worsening neck and back pain -MRI cervical and lumbar has been ordered. Pending. Pain control as below. Left hand cellulitis suspect secondary to IV drug use. Improving. History of IVDU, Dilaudid and heroin. -Patient reports last injection was approximately 1 week ago -Antibiotics as above -Cultures as above -Hand x-ray showing soft tissue swelling. Hand CT showing soft tissue swelling. ID to order MRI, of left hand as well as right, pending. -Echo with adequate EF, no vegetation, does show calcification on aorta. Lipid panel normal. -Encouraged elevation of extremity. Cellulitis marked. Assess for changes. No worsening overnight. Opiate abuse/chronic pain -[facility] record review showed that patient receives 30 mg oxycodone 3 times daily. Continue. Toradol breakthrough pain. -Well-controlled. Continue to monitor. Hypertension -Patient not on any home antihypertensives -Clonidine as needed. -Monitor BP trends. Hypokalemia -Status post p.o. repletion. Replete as needed. -Monitor BMP. Tobacco abuse -Nicotine patch given. Encouraged cessation. DVT Prophylaxis: SCDs. Discharge Planning: Will transfer to [facility] to undergo a DAMIEN this week. Awaiting clinical improvement. (2) Community acquired pneumonia Qualifiers: Laterality: unspecified laterality Qualified Code(s): J18.9 - Pneumonia, unspecified organism (3) Sepsis Qualifiers: Sepsis type: sepsis due to unspecified organism Qualified Code(s): A41.9 - Sepsis, unspecified organism
[2018-11-01 10:24] LABS: Eosinophils 4 % (0-4); Lymphocytes 12 % (9-44); Monocytes 4 % (0-8)
[2018-11-01 10:25] LABS: Platelet Estimate Normal (Normal); Toxic Granulation 3+
[2018-11-01 10:29] LABS: Albumin 1.6 g/dL (3.4-5.0); Calcium-Albumin Corrected 9.2 mg/dL (8.5-10.1)
[2018-11-01] MEDS: Vancomycin Inj 1,500 MG in Sodium Chlor 0.9% Inj 500 ML IV.SIG SCH (15:28)
[2018-11-01] MEDS: Temazepam 15 MG Capsule PO PRN (23:23)
[2018-11-02] MEDS: Vancomycin Inj 1,500 MG in Sodium Chlor 0.9% Inj 500 ML IV.SIG SCH ×2 (03:14→17:01)
[2018-11-02] MEDS: Ketorolac Inj 30 MG/ML (IVP) Vial IV.PUSH PRN ×3 (06:41→19:11)
[2018-11-02] MEDS: ceFAZolin 2 GM Premix Inj 2 GM/50 ML PIGGYBACK IV.SIG SCH ×2 (09:38→19:09)
[2018-11-02] MEDS: Senna/Docusate Sodium 8.6/50 MG Tablet PO SCH (09:42)
--- NOTE | 2018-11-02 10:06 | MR ---
EXAM DATE: 11/02/2018 9:32 AM EST AGE/SEX: 48 years / Male INDICATIONS: Pain. CLINICAL DATA: This is the patient's initial encounter. Patient reports that signs and symptoms have been present for 2 days and indicates a pain score of 5/10. MEDICAL/SURGICAL HISTORY: Hypertension. Myocardial infarction. Seizures. Fusion, cervical. Pt unable to tolerate further scanning. Only non contrast study done. COMPARISON: Cervical spine MRI dated 06/14/2017. TECHNIQUE: Multiplanar, multisequence MRI examination of the cervical spine was performed without co ntrast. FINDINGS: Vertebrae: There is endplate edema at the C6-C7 endplates. Some stability artifact located at C4, C5 and C6 is secondary to anterior plate with screws. The prevertebral fluid documented on the prior st udy is no longer present. Vertebral body height is maintained. Alignment: No anterolisthesis or retrolisthesis. Cord: Normal signal. Post Fossa: The cerebellar tonsils are normal in position. The craniocervical junction and C1-C2 level demonstrate no acute abnormality. C2-C3: No disc herniation, canal stenosis, or neural foraminal stenosis. C3-C4: There is right facet arthrosis. A diffuse broad-based disc bulge is present. No spinal canal stenosis or neural foraminal narrowing is appreciated. C4-C5: There is hardware anteriorly at this level causing susceptibility artifact. Spinal canal is a dequately visualized and there is no canal stenosis or significant neural foraminal narrowing. C5-C6: There is hardware anteriorly at this level causing susceptibility artifact. There is mild pos terior osteophytic ridging with uncovertebral osteophytes. No canal stenosis is present. There is mil d narrowing of the neural foramina bilaterally. C6-C7: Decreased disc height with endplate edema and diffuse posterior disc osteophyte complex with bilateral uncovertebral osteophytes. Spinal canal is mildly narrowed and there is moderate bilateral neural foraminal stenosis. Findings at this level are stable. C7-T1: No disc herniation, canal stenosis, or neural foraminal stenosis. Other: The visualized surrounding structures demonstrate no acute abnormality. CONCLUSION: 1. There has been prior ACDF at C4-C6. The prevertebral fluid documented on the prior study has reso lved. 2. There is degenerative disc disease at C3-C4 and C6-C7. At C6-C7 there is stable mild spinal canal stenosis and moderate bilateral neural foraminal narrowing secondary to disc osteophyte complex and bilateral uncovertebral osteophytes. 3. There is stable mild bilateral neural foraminal stenosis at C5-C6 secondary to uncovertebral oste ophytes. 4. Please note that only a noncontrast examination was performed. The patient could not tolerate add itional scanning time. Electronically signed by: Yrn De La Cruz MD 11/02/2018 10:05 AM EST
--- NOTE | 2018-11-02 10:14 | MR ---
EXAM DATE: 11/02/2018 9:52 AM EST AGE/SEX: 48 years / Male INDICATIONS: Osteomyelitis. CLINICAL DATA: This is the patient's initial encounter. Patient reports that signs and symptoms have been present for 2 days and indicates a pain score of 5/10. MEDICAL/SURGICAL HISTORY: Hypertension. Myocardial infarction. Seizures. Fusion, cervical. Pt unable to tolerate further scanning. Non contrast studies done. [place] [facility] [place] 06/14/2017. . TECHNIQUE: Multiplanar, multisequence MRI of the lumbar spine was performed without contrast. Patie nt was scanned in a sitting position; neutral, flexion, and extension scans were performed in the sa gittal plane. FINDINGS: Vertebra: There are mild to moderate primary degenerative changes noted throughout the lumbar spine. No compression fracture injuries are demonstrated. There is disc degeneration with disc space narrow ing at L2-3, L3-4 and L4-5. These findings are essentially stable compared to the prior examination. No significant or definite abnormal bone marrow edema is demonstrated to suggest osteomyelitis on thi s noncontrast study.. No paraspinal soft tissue swelling is demonstrated. Conus: Normal level and configuration. T12-L1: The thecal sac has a normal diameter. No evidence of disc bulge or protrusion. The neural foramina are patent bilaterally. L1-L2: The thecal sac has a normal diameter. No evidence of disc bulge or protrusion. The neural foramina are patent bilaterally. L2-L3: Mild diffuse broad-based bulging with mild narrowing of the neural foramina bilaterally. The re is stable compared to the prior examination. L3-L4: Diffuse broad-based bulging and right lateral bulging with narrowing of the right neural for johnny. The left neural foramina is patent. There is mild bilateral facet arthritis. These findings ar e stable compared to the prior study. L4-L5: Moderate diffuse broad-based bulging with focal central disc protrusion/extrusion. There flora ears to be extension of the disc extrusion behind the body of L5 centrally. This finding is new lana red to the prior examination. There is narrowing of the neural foramina bilaterally, right greater th an left. There is bilateral facet arthritis and hypertrophy of ligament of flava.. These factors are causing moderate spinal canal stenosis. L5-S1: Diffuse broad-based bulging and left paracentral disc extrusion with a sequestered disc frag ment behind the body of S1 on the left. This is causing a moderate extra dural defect on the anterior left aspect of the spinal canal. There is a new finding compared to the prior examination. There is bilateral facet arthritis. These findings are causing at least moderate spinal canal stenosis. CONCLUSION: 1. There continues to be primary bony degenerative changes, disc degeneration disc space narrowing t hroughout the lumbar spine. These degenerative changes are about the same compared to the prior exami [facility]. 2. There is moderate diffuse broad-based bulging with focal central disc protrusion/extrusion at L4- 5. There appears to be extension of disc material behind the body of L5 centrally consistent with a s equestered disc fragment. These factors are causing moderate spinal canal stenosis at this level. 3. Diffuse broad-based bulging and left paracentral disc extrusion with a sequestered disc fragment behind the body of S1 on the left. This is causing focal moderate spinal canal stenosis. 4. Diffuse broad-based and right lateral bulging at L3-4. 5. Mild diffuse broad-based bulging at L2-3. 6. Bilateral facet arthritis at multiple levels. Electronically signed by: Yousuf Luis MD 11/02/2018 10:12 AM EST
--- NOTE | 2018-11-02 14:01 | P.PNIM ---
Subjective Interval history: Follow-up bacteremia Staphylococcus aureus and pneumonia and IV drug use. Patient seen and examined, laying in bed, just came back from MRI complains of back pain. Patient complains of some nausea without vomiting. Bowel movement good. Patient requested for Ensure as he likes Ensure to get nutrients. Physical Exam Vital signs: Vital Signs 11/01/18 16:00 11/01/18 20:00 11/02/18 00:00 Temperature 98.3 F 98.6 F 99.1 F Pulse Rate 88 97 H 112 H Respiratory Rate 18 20 20 Blood Pressure 156/100 H 163/95 H 170/96 H Pulse Oximetry 96 98 90 L 11/02/18 04:00 11/02/18 08:00 Temperature 98.1 F Pulse Rate 89 112 H Respiratory Rate 20 Blood Pressure 178/105 H Pulse Oximetry 94 L Intake & Output 11/01/18 11/02/18 11/02/18 18:59 06:59 18:59 Intake Total 1615 / 1615 2765 / 2765 50 / 50 Output Total 900 / 900 Balance 1615 / 1615 1865 / 1865 50 / 50 Intake: IV 1615 / 1615 1565 / 1565 50 / 50 NS + KCl 20 mEq Inj 1,000 ML @ 1000 / 1000 1000 / 1000 100 mls/hr IV.CONT .Q10H NBA Rx #:[id number] Vancomycin Inj 1,500 MG In NS 515 / 515 515 / 515 Inj 500 ML @ 250 mls/hr IV.SIG Q12H NBA Rx#:[id number] Ancef 2 GM Premix Inj 2 gm In 100 / 100 50 / 50 50 / 50 50 ml @ 200 mls/hr IV.SIG Q8H NBA Rx#:[id number] Oral 1200 / 1200 Output: Urine 900 / 900 Other: # Voids 2 Date of Last Bowel Movement 10/31/18 Narrative: GENERAL: SKIN: Warm and dry. left thumb erytheme and slight edema, cap refill > 2 secs HEAD: Atraumatic. Normocephalic. EYES: Pupils equal and round. No scleral icterus. No injection or drainage. ENT: No nasal bleeding or discharge. Mucous membranes pink and moist. NECK: Trachea midline. No JVD. CARDIOVASCULAR: Regular rate and rhythm. RESPIRATORY: No accessory muscle use. Clear to auscultation. Breath sounds equal bilaterally. GASTROINTESTINAL: Abdomen soft, non-tender, nondistended. Hepatic and splenic margins not palpable. MUSCULOSKELETAL: Extremities without clubbing, cyanosis, or edema. No obvious deformities. NEUROLOGICAL: Awake and alert. No obvious cranial nerve deficits. Motor grossly within normal limits. generalized weakness, mowing all 4 extremities. Normal speech. PSYCHIATRIC: flat mood and affect; insight and judgment poor Results - Labs CBC & Chem 7: 11/01/18 08:00 11/01/18 08:18 Laboratory Results - last 24 hr 10/29/18 19:00 HIV RNA copies/mL Ultra Less than 20.0 HIV RNA logcopies/mL Ult Less than 1.30 Microbiology 10/29/18 13:25 Blood - Peripheral Aerobic Blood Culture - Final Staphylococcus aureus 10/29/18 13:25 Blood - Peripheral Anaerobic Blood Culture - Preliminary No growth in 4 days 10/29/18 13:20 Blood - Peripheral Aerobic Blood Culture - Final Staphylococcus aureus 10/29/18 13:20 Blood - Peripheral Anaerobic Blood Culture - Preliminary No growth in 4 days - Imaging Impressions Cervical Spine MRI 11/02/18 00:00 CONCLUSION: 1. There has been prior ACDF at C4-C6. The prevertebral fluid documented on the prior study has resolved. 2. There is degenerative disc disease at C3-C4 and C6-C7. At C6-C7 there is stable mild spinal canal stenosis and moderate bilateral neural foraminal narrowing secondary to disc osteophyte complex and bilateral uncovertebral osteophytes. 3. There is stable mild bilateral neural foraminal stenosis at C5-C6 secondary to uncovertebral osteophytes. 4. Please note that only a noncontrast examination was performed. The patient could not tolerate additional scanning time. Lumbar Spine MRI 11/02/18 00:00 CONCLUSION: 1. There continues to be primary bony degenerative changes, disc degeneration disc space narrowing throughout the lumbar spine. These degenerative changes are about the same compared to the prior examination. 2. There is moderate diffuse broad-based bulging with focal central disc protrusion/extrusion at L4-5. There appears to be extension of disc material behind the body of L5 centrally consistent with a sequestered disc fragment. These factors are causing moderate spinal canal stenosis at this level. 3. Diffuse broad-based bulging and left paracentral disc extrusion with a sequestered disc fragment behind the body of S1 on the left. This is causing focal moderate spinal canal stenosis. 4. Diffuse broad-based and right lateral bulging at L3-4. 5. Mild diffuse broad-based bulging at L2-3. 6. Bilateral facet arthritis at multiple levels. Assessment and Plan - Assessment (1) Bilateral pneumonia Code(s): J18.9 - Pneumonia, unspecified organism Status: Acute (2) Community acquired pneumonia Code(s): J18.9 - Pneumonia, unspecified organism Status: Acute (3) Sepsis Code(s): A41.9 - Sepsis, unspecified organism Status: Acute (4) Cellulitis of hand Code(s): L03.119 - Cellulitis of unspecified part of limb Status: Acute - Plan This is a 48-year-old male patient with past medical history significant for hypertension and IV drug use who presents to the emergency department for increasing shortness of breath, fever and chills, generalized weakness and productive cough MSSA/ Severe sepsis IVDU Bacteremia, + blood cultures MSSA x 4 bottles Community acquired bacterial bilateral pneumonia Rule out endocarditis -elevated lactic acid, leukocytosis and tachycardia -Blood cultures x 4 staph aureus. Repeat blood cultures gram + staph aureus x 2 bottles. Continue repeating until sterility noted -Initially on Vanco/Zosyn IV. ID consulted, appreciate input and recommendations. Continue Ancef. DC Zosyn/Vanco. Sensitivity noted -Chest x-ray shows slight interval worsening in aeration with increasing confluence of bibasilar infiltrates -Lactic acidosis improved -Continue IVF, s/p Bolus IVF -Streptococcus and legionella negative. Influenza negative -Continue incentive spirometry. Mucinex. Sputum culture. Duonebs as needed for shortness of breath -O2sat 94% in RA, Supplemental O2 as needed to keep sats >92% -Cardiology consulted, appreciate input and recommendations. Possible DAMIEN this week with cardiology -Echo with adequate EF, no vegetation, does show calcification on aorta -Lipid panel normal -follow blood culture, CBC Opiate abuse/chronic pain Worsening neck and back pain acute on chronic -MRI cervical and lumbar has been ordered. Pending. Pain control as below. -Lumbar spine MRI: There continues to be primary bony degenerative changes, disc degeneration disc space narrowing throughout the lumbar spine. These degenerative changes are about the same compared to the prior examination. There is moderate diffuse broad-based bulging with focal central disc protrusion /extrusion at L4-5. There appears to be extension of disc material behind the body of L5 centrally consistent with a sequestered disc fragment. These factors are causing moderate spinal canal stenosis at this level. Diffuse broad-based bulging and left paracentral disc extrusion with a sequestered disc fragment behind the body of S1 on the left. This is causing focal moderate spinal canal stenosis. Diffuse broad-based and right lateral bulging at L3-4.. Mild diffuse broad-based bulging at L2-3. and Bilateral facet arthritis at multiple levels -Cervical spine MRI: Prior ACDF at C4-C6. Prevertebral fluid documented on the prior study has resolved. Degenerative disc disease at C3-C4 and C6-C7. At C6- C7 there is stable mild spinal canal stenosis and moderate bilateral neural foraminal narrowing secondary to disc osteophyte complex and bilateral uncovertebral osteophytes. There is stable mild bilateral neural foraminal stenosis at C5-C6 secondary to uncovertebral osteophytes. -[facility] record review showed that patient receives 30 mg oxycodone 3 times daily. Continue. -pain controlled, continue Toradol breakthrough pain. - Continue to monitor Left hand cellulitis suspect secondary to IV drug use. History of IVDU, Dilaudid and heroin. -Patient reports last injection was approximately 1 week ago -Antibiotics as above -Cultures as above -Hand x-ray showing soft tissue swelling. Hand CT showing soft tissue swelling. -Hand MRI ordered with ID, follow results -Encouraged elevation of extremity. Cellulitis improving Hypertension BP elevated -Patient not on any home antihypertensives -continue Clonidine as needed -add Lisinopril -Monitor BP trends, adjust medication as needed Hypokalemia -improving -Status post p.o. repletion. Replete as needed. -Monitor BMP, replace as needed Tobacco abuse -Nicotine patch given. - pt counseled on smoking cessation. DVT Prophylaxis: SCDs. Code Status: full code Discussed Condition With: patient, family and nurse (2) Community acquired pneumonia Qualifiers: Laterality: unspecified laterality Qualified Code(s): J18.9 - Pneumonia, unspecified organism (3) Sepsis Qualifiers: Sepsis type: sepsis due to unspecified organism Qualified Code(s): A41.9 - Sepsis, unspecified organism
[2018-11-02] MEDS ORDERED: Lisinopril 10 MG Tablet PO SCH (14:30)
--- NOTE | 2018-11-02 20:05 | P.PNADD ---
Addendum to Inpatient Note Additional information: seen around 1730 today full note to follow
[2018-11-02 20:41] VITALS: BP 152/77; PULSE 92; RESP 18; TEMP 98.1; O2SAT 98
[2018-11-02] MEDS ORDERED: Pharmacy Ordered Lab Info OTHER ONE (20:45)
--- NOTE | 2018-11-02 23:49 | P.PNID ---
Subjective Allergies/Adverse Reactions: Allergies bee venom protein (honey bee) Allergy (Severe, Verified 10/29/18 05:18) Anaphylaxis cyclobenzaprine Allergy (Severe, Verified 10/29/18 05:18) MUSCLE SPASMS Objective Vital Signs 11/02/18 00:00 11/02/18 04:00 11/02/18 08:00 Temperature 99.1 F 98.1 F 98.5 F Pulse Rate 112 H 89 92 H Respiratory Rate 20 20 20 Blood Pressure 170/96 H 178/105 H 150/85 H Pulse Oximetry 90 L 94 L 95 11/02/18 12:00 11/02/18 16:00 11/02/18 20:00 Temperature 98.2 F 98.1 F Pulse Rate 79 99 H 92 H Respiratory Rate 20 18 Blood Pressure 138/84 152/77 H Pulse Oximetry 94 L 98 Intake & Output 11/02/18 11/02/18 11/03/18 06:59 18:59 06:59 Intake Total 2765 / 2765 410 / 410 565 / 565 Output Total 900 / 900 Balance 1865 / 1865 410 / 410 565 / 565 Intake: IV 1565 / 1565 50 / 50 565 / 565 NS + KCl 20 mEq Inj 1,000 ML @ 1000 / 1000 100 mls/hr IV.CONT .Q10H NBA Rx #:[id number] Vancomycin Inj 1,500 MG In NS 515 / 515 515 / 515 Inj 500 ML @ 250 mls/hr IV.SIG Q12H NBA Rx#:[id number] Ancef 2 GM Premix Inj 2 gm In 50 / 50 50 / 50 50 / 50 50 ml @ 200 mls/hr IV.SIG Q8H NBA Rx#:[id number] Oral 1200 / 1200 360 / 360 Output: Urine 900 / 900 Other: # Voids 5 # Bowel Movements 3 11/02/18 15:17 Blood - Peripheral Aerobic Blood Culture - Pending 11/02/18 15:17 Blood - Peripheral Anaerobic Blood Culture - Pending 11/02/18 15:12 Blood - Peripheral Aerobic Blood Culture - Pending 11/02/18 15:12 Blood - Peripheral Anaerobic Blood Culture - Pending 10/29/18 13:25 Blood - Peripheral Aerobic Blood Culture - Final Staphylococcus aureus 10/29/18 13:25 Blood - Peripheral Anaerobic Blood Culture - Preliminary No growth in 4 days 10/29/18 13:20 Blood - Peripheral Aerobic Blood Culture - Final Staphylococcus aureus 10/29/18 13:20 Blood - Peripheral Anaerobic Blood Culture - Preliminary No growth in 4 days Lab - Hematology Results 11/01/18 08:00 CBC w Diff Slide review pending WBC 21.7 H RBC 3.27 L Hgb 9.3 L D Hct 27.1 L MCV 82.9 MCH 28.3 MCHC 34.2 RDW 15.8 Plt Count 290 D MPV 9.8 Neut % (Auto) 79.7 H Lymph % (Auto) 12.8 Mathews % (Auto) 5.8 Eos % (Auto) 1.6 Baso % (Auto) 0.1 Neut # (Auto) 17.3 H Lymph # (Auto) 2.8 Mathews # (Auto) 1.3 H Eos # (Auto) 0.3 Baso # (Auto) 0.0 WBC Differential Manual diff final Seg Neuts % (Manual) 74 H Band Neuts % (Manual) 4 Lymphocytes % (Manual) 12 Monocytes % (Manual) 4 Eosinophils % (Manual) 4 Basophils % (Manual) 2 Abs Neuts (Manual) 16.9 H Differential Comment . Toxic Granulation 3+ H Platelet Estimate Normal Lab - Chemistry Results 11/01/18 08:18 Sodium 138 Potassium 3.7 Chloride 104 Carbon Dioxide 26.6 Anion Gap 7 BUN 13 Creatinine 0.77 Estimated GFR Greater than 89 Random Glucose 132 H Calcium 7.3 L* Calcium Adj for Albumin 9.2 Albumin 1.6 L Imaging: ITS Impressions Hand X-Ray 10/28/18 00:00 CONCLUSION: Soft tissue swelling over the dorsum of the hand with no underlying bony abnormality. Chest X-Ray 10/28/18 16:09 CONCLUSION: Slight worsening in aeration. Hand CT 10/30/18 00:00 CONCLUSION: 1. Soft tissue swelling at the lateral aspect of the first digit. 2. No acute bony changes seen. Cervical Spine MRI 11/02/18 00:00 CONCLUSION: 1. There has been prior ACDF at C4-C6. The prevertebral fluid documented on the prior study has resolved. 2. There is degenerative disc disease at C3-C4 and C6-C7. At C6-C7 there is stable mild spinal canal stenosis and moderate bilateral neural foraminal narrowing secondary to disc osteophyte complex and bilateral uncovertebral osteophytes. 3. There is stable mild bilateral neural foraminal stenosis at C5-C6 secondary to uncovertebral osteophytes. 4. Please note that only a noncontrast examination was performed. The patient could not tolerate additional scanning time. Lumbar Spine MRI 11/02/18 00:00 CONCLUSION: 1. There continues to be primary bony degenerative changes, disc degeneration disc space narrowing throughout the lumbar spine. These degenerative changes are about the same compared to the prior examination. 2. There is moderate diffuse broad-based bulging with focal central disc protrusion/extrusion at L4-5. There appears to be extension of disc material behind the body of L5 centrally consistent with a sequestered disc fragment. These factors are causing moderate spinal canal stenosis at this level. 3. Diffuse broad-based bulging and left paracentral disc extrusion with a sequestered disc fragment behind the body of S1 on the left. This is causing focal moderate spinal canal stenosis. 4. Diffuse broad-based and right lateral bulging at L3-4. 5. Mild diffuse broad-based bulging at L2-3. 6. Bilateral facet arthritis at multiple levels.
[2018-11-03] MEDS ORDERED: Pharmacy Ordered Lab Info OTHER ONE (02:45)
== END 2018-11-02 21:37 | disposition left against medical advice (07) ==
LOC: NEPE 14:13 → INTOOBSV 19:27 → NEDA 19:27 → PH3 20:38 → N04 11-01 11:33
PROVIDERS: ADMIT Hospitalist; ATTEND Hospitalist